=== PATIENT | male | born 1940 | race African-American/Black ===

== ENCOUNTER → 2020-01-10 10:10 | Outpatient (BNVA) | payer MEDICARE, SELFPAY | PROVIDERS: PCP Family Medicine; Visit Provider Physician Assistant | DX: M17.12 Unilateral primary osteoarthritis, left knee (principal) | CPT/HCPCS: 20610; 99213; J1040 ==

== ENCOUNTER 2020-03-13 12:49 | Outpatient (REF) | payer MEDICARE, SELFPAY ==
[2020-03-13 13:45] LABS: Alanine Aminotransferase 24 U/L (0-40); Anion Gap 12 (12-20); Aspartate Amino Transferase 32 U/L (5-37); Blood Urea Nitrogen 10 mg/dL (9-16); Carbon Dioxide 25 mmol/L (22-29); Chloride 107 mmol/L (96-108); Estimated Glomerular Filt Rate > 60; Potassium 4.4 mmol/l (3.3-5.1); Sodium 140 mmol/L (135-145)
== END 2020-03-13 12:50 | disposition home or self-care (01) ==
LOC: HO.LAB 12:49
PROVIDERS: PCP Family Medicine; Visit Provider Family Medicine
DX: E78.00 Pure hypercholesterolemia, unspecified (principal); I10 Essential (primary) hypertension
CPT/HCPCS: 80051; 82550; 82565; 84450; 84460; 84520

== ENCOUNTER → 2020-05-15 12:30 | Outpatient (BNVA) | payer MEDICARE, SELFPAY | PROVIDERS: PCP Family Medicine; Visit Provider Internal Medicine | DX: I25.10 Atherosclerotic heart disease of native coronary artery without angina pectoris (principal); I71.4 Abdominal aortic aneurysm, without rupture; I10 Essential (primary) hypertension; E78.5 Hyperlipidemia, unspecified | CPT/HCPCS: 93005; 99212 ==

== ENCOUNTER → 2020-05-29 12:41 | Outpatient (BNVA) | payer MEDICARE, SELFPAY | PROVIDERS: PCP Family Medicine; Visit Provider Physician Assistant | DX: M17.12 Unilateral primary osteoarthritis, left knee (principal); I71.4 Abdominal aortic aneurysm, without rupture | CPT/HCPCS: 20610; 99212; J1040 ==

== ENCOUNTER 2020-06-05 07:33 | Outpatient (REF) | payer MEDICARE, SELFPAY ==
--- NOTE | ~2020-06-05 | US_ITS ---
EXAMINATION: US RETROPERITONEAL LIMITED (AORTA) CLINICAL INFORMATION: Abdominal aortic aneurysm. COMPARISON: Aortic ultrasound on 08/25/2016 TECHNIQUE: Carreno-scale, color Doppler and spectral Doppler evaluation of the abdominal aorta. FINDINGS: There is an infrarenal aortic stent extending into the bilateral common iliac arteries. The measurements of the aorta in maximum AP and transverse dimensions respectively are as follows: Proximal: 2.9 x 2.9 cm. Mid: 2.9 x 2.9 cm. Distal: 2.6 cm. PSV: 65.3 cm/s. The measurements of the common iliac arteries in maximum AP and TRV dimensions are as follows: Right Common Iliac Artery: 2.1 cm. Left Common Iliac Artery: 2.3 cm. US/US abdominal aortic aneurysm IMPRESSION: Patent stent in the infrarenal abdominal aortic aneurysm. Aneurysm sac measures up to 2.9 cm..
== END 2020-06-05 07:34 | disposition home or self-care (01) ==
LOC: HO.US 07:33
PROVIDERS: Visit Provider Internal Medicine
DX: I71.4 Abdominal aortic aneurysm, without rupture (principal)
CPT/HCPCS: 76706

== ENCOUNTER → 2020-06-26 13:45 | Outpatient (BNVA) | payer MEDICARE, SELFPAY | PROVIDERS: PCP Family Medicine; Visit Provider Surgery Vascular Surgery | DX: I71.4 Abdominal aortic aneurysm, without rupture (principal) | CPT/HCPCS: 99212 ==

== ENCOUNTER 2020-09-16 09:38 | Outpatient (REF) | payer MEDICARE, SELFPAY ==
--- NOTE | ~2020-09-16 | CT_ITS ---
EXAMINATION: CT ANGIOGRAM ABDOMEN AND PELVIS CLINICAL INFORMATION: Abdominal aortic aneurysm COMPARISON: CTA abdomen and pelvis on 11/23/2016 TECHNIQUE: Multiple axial images were obtained through the abdomen and pelvis following the administration of 80 mL of Omnipaque 350 intravenous contrast. MIP reconstructed images were performed. This CT examination was performed using dose optimization techniques as appropriate, variously including the following: *Automated exposure control *Adjustment of mA and/or kV according to patient size (this includes techniques or standardized protocols for targeted exams where dose is matched to indication/reason for exam; i.e. extremities or head) *Use of iterative reconstruction technique DLP: 627 mGy-cm FINDINGS: Vasculature: There has been interval endovascular repair of an infrarenal abdominal aortic aneurysm with an aortobiiliac graft. The graft is patent. There is no evidence of endoleak. The manzanita aneurysm sac measures up to 4.1 cm where previously measured 4.6 cm. The origins of the celiac artery, SMA, and 2 left renal arteries are patent. The origin of the EDGAR is not well visualized. There is atherosclerotic calcification in the bilateral internal iliac arteries and common femoral arteries. Lower chest: Bilateral posterior dependent atelectasis, left greater than right. Large pleural plaque at the right lung base. Liver: Normal in size and attenuation. No focal lesions. Gallbladder and bile ducts: The gallbladder is normal. No intrahepatic or extrahepatic biliary ductal dilatation. Spleen: Normal in size and attenuation. Pancreas: Unremarkable. Adrenal glands: Unremarkable. Right kidney: There are multiple hypodensities which are too small to characterize. There is no hydronephrosis or hydroureter. Left kidney: There are multiple hypodensities which are too small to characterize. There is no hydronephrosis or hydroureter. Lymph nodes: There is no lymphadenopathy in the abdomen or pelvis. Gastrointestinal tract: The stomach, small, and large bowel are normal in course and caliber. The appendix is identified and is within normal limits. Colonic diverticulosis is noted. Urinary bladder: The bladder is normal. Pelvic organs: The prostate is unremarkable. Additional findings: There is no intraperitoneal free air or fluid. Soft tissues: Unremarkable. Osseous structures: No lytic or blastic lesions identified. CT/CT angio abdomen pelvis IMPRESSION: Interval endovascular repair of an infrarenal abdominal aortic aneurysm with an aortobiiliac graft. No evidence of endoleak. The manzanita aneurysm sac measures up to 4.1 cm where previously measured 4.6 cm.
[2020-09-16 11:29] LABS: Blood Urea Nitrogen 13 mg/dL (9-16); Estimated Glomerular Filt Rate > 60
[2020-09-16] MEDS: iohexoL 350 MG/ML 100 ML INFUS..BTL 80 ML IV (13:35)
== END 2020-09-16 09:39 | disposition home or self-care (01) ==
LOC: HO.CT 09:38
PROVIDERS: PCP Internal Medicine; Visit Provider Surgery Vascular Surgery
DX: I71.4 Abdominal aortic aneurysm, without rupture (principal)
CPT/HCPCS: 36415; 74174; 82565; 84520; Q9967

== ENCOUNTER → 2020-09-23 12:50 | Outpatient (BNVA) | payer MEDICARE, SELFPAY | PROVIDERS: PCP Internal Medicine; Visit Provider Surgery Vascular Surgery | DX: I71.4 Abdominal aortic aneurysm, without rupture (principal) | CPT/HCPCS: 99212 ==

== ENCOUNTER → 2020-09-24 12:31 | Outpatient (BNVA) | payer MEDICARE, SELFPAY | PROVIDERS: Visit Provider Physician Assistant | DX: M17.12 Unilateral primary osteoarthritis, left knee (principal); M25.562 Pain in left knee; I71.4 Abdominal aortic aneurysm, without rupture; I25.10 Atherosclerotic heart disease of native coronary artery without angina pectoris; I10 Essential (primary) hypertension; E78.49 Other hyperlipidemia; I73.9 Peripheral vascular disease, unspecified | CPT/HCPCS: 20610; 99212; J1040 ==

== ENCOUNTER 2020-11-14 10:37 | Outpatient (REF) | payer MEDICARE, SELFPAY ==
[2020-11-14 10:41] LABS: MANUAL DIFF FLAG NO
[2020-11-14 11:03] LABS: Basophils Absolute Auto 0.1 X10*3/uL (0.0-0.2); Basophils Percent Auto 0.6 % (0-2); Eosinophils Absolute Auto 0.2 X10*3/uL (0.0-0.4); Eosinophils Percent Auto 1.9 % (0-4); Hematocrit 43.4 % (42-52); Imm Gran Abs Auto 0.06 X10*3/uL (0.00-0.03); Imm Gran Pct Auto 0.8 % (0.0-0.4); Lymphocytes Absolute Auto 2.3 X10*3/uL (1.2-4.9); Lymphocytes Percent Auto 28.6 % (20-40); Mean Corpuscular HGB Conc 32.3 g/dl (31.0-36.0); Mean Corpuscular Hemoglobin 30.6 pg (27.0-33.0); Mean Platelet Volume 12.9 fL (9.4-12.4); Monocytes Absolute Auto 0.7 X10*3/uL (0.1-1.2); Neutrophils Absolute Auto 4.6 X10*3/uL (2.0-8.3); Neutrophils Percent Auto 59.1 % (45-73); Platelet Count 130 X10*3/uL (160-400); Red Blood Count 4.57 X10*6/uL (4.60-5.80); Red Cell Distribution Width 13.2 % (11.0-16.0); White Blood Count 7.9 X10*3/uL (4.8-10.8)
[2020-11-14 11:10] LABS: Alanine Aminotransferase 24 U/L (0-40); Alkaline Phosphatase 77 U/L (39-117); Anion Gap 11 (12-20); Aspartate Amino Transferase 28 U/L (5-37); Bilirubin Total 0.8 mg/dL (0.0-1.0); Blood Urea Nitrogen 14 mg/dL (9-16); Calcium 8.7 mg/dL (8.4-10.2); Carbon Dioxide 28 mmol/L (22-29); Chloride 106 mmol/L (96-108); Cholesterol 111 mg/dL; Estimated Glomerular Filt Rate > 60; Glucose Fasting 85 mg/dL (60-99); HDL Cholesterol 29 mg/dL; LDL Cholesterol Calculated 70 mg/dl; Potassium 4.1 mmol/L (3.3-5.1); Sodium 141 mmol/L (135-145); Total Protein 6.8 g/dL (6.5-8.0); Triglycerides 62 mg/dL
[2020-11-14 11:28] LABS: Reflex LDLD? No
[2020-11-14 11:32] LABS: Glucose Urine UA NEG (NEG); Leukocyte Esterase Urine NEG (NEG); Nitrite Urine NEG (NEG); Specific Gravity - Urine 1.015 (1.005-1.025); Urine Blood NEG (NEG); Urine Ketones NEG (NEG); Urine Protein NEG (NEG-TRACE)
[2020-11-14 11:41] LABS: PSA,Total (Free>4and<10) 1.08 ng/mL (0.00-4.00)
[2020-11-14 11:45] LABS: Appearance Urine CLEAR; Color Urine YELLOW
== END 2020-11-14 10:38 | disposition home or self-care (01) ==
LOC: HO.LNP 10:37
PROVIDERS: Visit Provider Internal Medicine
DX: Z00.00 Encounter for general adult medical examination without abnormal findings (principal); I10 Essential (primary) hypertension; I48.0 Paroxysmal atrial fibrillation; Z12.5 Encounter for screening for malignant neoplasm of prostate
CPT/HCPCS: 80053; 80061; 81003; 84153; 85025

== ENCOUNTER → 2021-01-09 09:35 | Outpatient (BNVA) | payer MEDICARE, SELFPAY | PROVIDERS: PCP Family Medicine; Visit Provider Physician Assistant | DX: M17.12 Unilateral primary osteoarthritis, left knee (principal) | CPT/HCPCS: 20610; 99212; J1040 ==

== ENCOUNTER → 2021-04-30 08:43 | Outpatient (BNVA) | payer MEDICARE, SELFPAY | PROVIDERS: PCP Family Medicine; Visit Provider Physician Assistant | DX: M17.12 Unilateral primary osteoarthritis, left knee (principal) | CPT/HCPCS: 20610; 99212; J1040 ==

== ENCOUNTER → 2021-05-18 12:26 | Outpatient (BNVA) | payer MEDICARE, SELFPAY | PROVIDERS: PCP Family Medicine; Visit Provider Internal Medicine | DX: I71.4 Abdominal aortic aneurysm, without rupture (principal); I25.10 Atherosclerotic heart disease of native coronary artery without angina pectoris; I10 Essential (primary) hypertension; E78.5 Hyperlipidemia, unspecified | CPT/HCPCS: 93005; 99212 ==

== ENCOUNTER 2021-08-10 10:44 | Outpatient (REF) | payer MEDICARE, SELFPAY ==
[2021-08-10 11:55] LABS: Alanine Aminotransferase 21 U/L (0-40); Anion Gap 12 (12-20); Aspartate Amino Transferase 28 U/L (5-37); Blood Urea Nitrogen 12 mg/dL (9-16); Carbon Dioxide 26 mmol/L (22-29); Chloride 107 mmol/L (96-108); Estimated Glomerular Filt Rate > 60; Potassium 4.5 mmol/L (3.3-5.1); Sodium 140 mmol/L (135-145)
== END 2021-08-10 10:45 | disposition home or self-care (01) ==
LOC: HO.LAB 10:44
PROVIDERS: Absent Provider Family Medicine; PCP Family Medicine; Visit Provider Surgery Vascular Surgery
DX: I10 Essential (primary) hypertension (principal); E78.00 Pure hypercholesterolemia, unspecified; K75.81 Nonalcoholic steatohepatitis (NASH); Z79.899 Other long term (current) drug therapy
CPT/HCPCS: 36415; 80051; 82550; 82565; 84450; 84460; 84520

== ENCOUNTER 2021-08-15 14:48 | Emergency (ER) | payer MEDICARE, SELFPAY ==
--- NOTE | ~2021-08-15 | XR_ITS ---
EXAMINATION: XR shoulder LT min 2V, XR foot LT min 3V CLINICAL INFORMATION: Reason for Exam fall/injury COMPARISON: None. TECHNIQUE: 3 views of left shoulder 3 views of left foot FINDINGS: Left shoulder: No acute fracture or dislocation. High riding humeral head. Moderate marginal osteophytes of the glenohumeral and a acromioclavicular joints. Prominent subacromial enthesophyte. Left foot: No acute fracture or dislocation. Small marginal osteophytes of the first metatarsophalangeal joint, and first tarsometatarsal joint. Diffuse soft tissue swelling about the foot. Vascular calcifications. XR/XR shoulder LT min 2V IMPRESSION: No acute fracture or dislocation.
--- NOTE | ~2021-08-15 | XR_ITS ---
EXAMINATION: XR shoulder LT min 2V, XR foot LT min 3V CLINICAL INFORMATION: Reason for Exam fall/injury COMPARISON: None. TECHNIQUE: 3 views of left shoulder 3 views of left foot FINDINGS: Left shoulder: No acute fracture or dislocation. High riding humeral head. Moderate marginal osteophytes of the glenohumeral and a acromioclavicular joints. Prominent subacromial enthesophyte. Left foot: No acute fracture or dislocation. Small marginal osteophytes of the first metatarsophalangeal joint, and first tarsometatarsal joint. Diffuse soft tissue swelling about the foot. Vascular calcifications. XR/XR foot LT min 3V IMPRESSION: No acute fracture or dislocation.
--- NOTE | ~2021-08-15 | CT_ITS ---
EXAMINATION: CT HEAD WITHOUT CONTRAST CT CERVICAL SPINE WITHOUT CONTRAST CLINICAL INFORMATION: Status post fall. Head injury. Patient is on blood thinners. COMPARISON: None TECHNIQUE: Multidetector volumetric CT imaging of the head and cervical spine is acquired without intravenous contrast administration. Postprocessing is performed at a dedicated workstation. Multiplanar reformatted images are submitted. This CT scan was performed using dose optimization techniques as appropriate to a performed exam including the following: *Automated exposure control. *Adjustment of mA and/or kV according to patient size (this includes techniques or standardized protocols for targeted exams were dose is matched to indication/reason for exam; i.e. extremities or head). *Use of iterative reconstruction technique. DLP: 1500 mGy-cm FINDINGS: CT HEAD: There is no evidence of acute intracranial hemorrhage, midline shift or mass effect. Eehp-iu-akqyi matter differentiation is well preserved. No evidence of acute territorial infarction. No abnormal extra-axial fluid collection. There is mild global volume loss with proportionate dilatation of the ventricles and cortical sulci. Mild bilateral periventricular patchy white matter low-attenuation changes are noted likely of chronic microangiopathy. Paranasal sinuses are well aerated. Osseous calvarium is intact. Mastoid air cells and middle ear cavities are well aerated. Cerumen is noted in the left external auditory canal. Osseous calvarium is intact. There is no evidence of significant calvarial soft tissue hematoma or swelling. CT CERVICAL SPINE: The vertebral body heights and alignment are maintained. Atlantoaxial and atlanto-occipital alignments are maintained. Posterior elements are intact and in normal alignment. Multilevel moderate disc space narrowing is noted from C2 to C7 with small marginal endplate osteophytes. Multilevel bilateral facet arthropathy is noted. The visualized lung apices are grossly unremarkable. No evidence of prevertebral soft tissue swelling. No significant thyroid nodule. Vascular calcifications are noted. No evidence of tight central canal stenosis. Moderate bilateral neural foraminal stenosis is noted from C3 to C7. CT/CT cervical spine wo con IMPRESSION: 1. No evidence of acute intracranial abnormality. Specifically, there is no evidence of acute intracranial hemorrhage or fracture of the osseous calvarium. 2. No evidence of acute fracture or traumatic subluxation in the cervical spine. Diffuse cervical spondylosis.
[2021-08-15 15:24] VITALS: BP 147/70; PULSE 63; RESP 17; TEMP 36.4; O2SAT 98; BMI 32.5
[2021-08-15 16:42] LABS: MANUAL DIFF FLAG NO
[2021-08-15 16:44] LABS: Basophils Absolute Auto 0.1 X10*3/uL (0.0-0.2); Basophils Percent Auto 0.5 % (0-2); Eosinophils Absolute Auto 0.2 X10*3/uL (0.0-0.4); Eosinophils Percent Auto 1.9 % (0-4); Hematocrit 40.1 % (42.0-52.0); Hemoglobin 13.3 g/dl (14.0-18.0); Imm Gran Abs Auto 0.05 X10*3/uL (0.00-0.03); Imm Gran Pct Auto 0.5 % (0.0-0.4); Lymphocytes Absolute Auto 2.3 X10*3/uL (1.2-4.9); Lymphocytes Percent Auto 24.9 % (20-40); Mean Corpuscular HGB Conc 33.2 g/dl (31.0-36.0); Mean Corpuscular Hemoglobin 31.6 pg (27.0-33.0); Mean Corpuscular Volume 95.2 fL (80.0-98.0); Mean Platelet Volume 12.4 fL (9.4-12.4); Monocytes Absolute Auto 0.9 X10*3/uL (0.1-1.2); Neutrophils Absolute Auto 5.7 x10*3/uL (2.0-8.3); Neutrophils Percent Auto 62.2 % (45-73); Platelet Count 142 X10*3/uL (160-400); Red Blood Count 4.21 X10*6/uL (4.60-5.80); Red Cell Distribution Width 13.2 % (11.0-16.0); White Blood Count 9.1 X10*3/uL (4.8-10.8)
[2021-08-15 17:12] LABS: Anion Gap 11 (12-20); Blood Urea Nitrogen 16 mg/dL (9-16); Calcium 9.3 mg/dL (8.4-10.2); Carbon Dioxide 27 mmol/L (22-29); Chloride 107 mmol/L (96-108); Creatinine Clr Calc Pharmacy 66.4; Estimated Glomerular Filt Rate > 60; Glucose Random 72 mg/dL (60-115); Potassium 4.8 mmol/L (3.3-5.1); Sodium 140 mmol/L (135-145)
--- NOTE | 2021-08-15 18:02 | ED.FALL ---
HPI - Fall General Chief Complaint: Fall Stated Complaint: FALL L FOOT INJ Time Seen by Provider: 08/15/21 17:42 Source: patient and family Mode of arrival: ambulatory Limitations: no limitations History of Present Illness HPI Narrative: 81-year-old male with a past medical history of right [id number] amputation, AAA, hypertension, PVD currently on Plavix presenting to the ED with complaints of a mechanical fall that occurred yesterday when he was at home. He reports that he walks with his crutches and he lost his balance with the crutch due to it got stuck on the neri of his home and he started to fall therefore he tried to slide down the wall that was next to him and he hit his head although did not lose consciousness and he was able to slide down the wall. He he reports that he does not recall injuring his left foot although he has noticed that it is now swollen and red and feels warm. any symptoms prior to the fall. He reports only pain/ swelling to the left lower foot after the fall no other symptoms. He denies any dizziness, headaches, neck pain / stiffness/ injury, changes in vision, jaw pain, paresthesias, nausea/ vomiting, chest pain or shortness of breath, dyspnea on exertion, orthopnea, palpitations, paresthesias, abdominal pain/ injury, back pain/injury, or any other symptoms complaints or concerns or injuries at this time. complaint: fall Onset (ago): day(s) ( Yesterday) Fall from: standing Fall witnessed: no Place fall occurred: home Loss of consciousness: none Prolonged down time: no Symptoms prior to fall: none Context: tripped/slipped Location of injury: head Location of injury - extremities: left: foot Severity: mild Quality: aching Associated symptoms (after fall): other ( pain to the left foot/ swelling otherwise no other symptoms) Related Data Home Medications Medication Instructions Recorded Confirmed losartan 50 mg tablet 50 mg PO DAILY 01/02/20 05/18/21 omeprazole 20 mg capsule,delayed 20 mg PO DAILY 01/02/20 05/18/21 release aspirin 81 mg tablet,delayed 81 mg PO DAILY 05/15/20 05/18/21 release isosorbide mononitrate 30 mg 30 mg PO DAILY 05/15/20 05/18/21 tablet,extended release 24 hr metoprolol tartrate 50 mg tablet 50 mg PO BID 05/15/20 05/18/21 multivitamin 1 tab PO DAILY 05/15/20 05/18/21 umeclidinium 62.5 mcg-vilanterol 1 inh INHALATION DAILY 05/15/20 05/18/21 25 mcg/actuation powdr for inhalation (Anoro Ellipta) Previous Rx's Medication Instructions Recorded atorvastatin 80 mg tablet 80 mg PO BEDTIME #30 tab 05/02/20 Wide Posthetic shoe #1 ea 07/06/21 walker #1 ea 08/05/21 cephalexin 500 mg capsule 500 mg PO Q6H 10 Days #40 cap 08/15/21 doxycycline hyclate 100 mg tablet 100 mg PO BID 10 Days #20 tab 08/15/21 Allergies Allergy/AdvReac Type Severity Reaction Status Date / Time No Known Allergies Allergy Mild NOT Verified 08/15/21 15:30 APPLICABLE Review of Systems Review of Systems: Constitutional : No Weight loss, No Fever, No Chills, No Night Sweats, No Fatigue, No Malaise ENT/Mouth : No Hearing loss, No Ear Pain, No Nasal Congestion, No Sinus Pain, No Hoarseness, No sore throat, No Rhinorrhea, No Swallowing Difficulty Eyes: No Eye Pain, No Swelling, No Redness, No Foreign Body, No Discharge, No Vision Changes Cardiovascular : No Chest Pain, No SOB, No Dyspnea on Exertion, No Orthopnea, No Edema, No Palpitations Respiratory : No Cough, No Sputum, No Wheezing, No Smoke Exposure, No Dyspnea Gastrointestinal : No Nausea, No Vomiting, No Diarrhea, No Constipation, No abdominal Pain, No Hematochezia, No Melena Genitourinary : no irregular bleeding, No Dysuria, No Urinary Frequency, No Hematuria, No Urinary Incontinence, No Urgency, No Flank Pain, No Urinary Flow Changes, No Hesitancy Musculoskeletal : + left foot joint pain/swelling, No Myalgias, No Joint Swelling Skin : No Skin Lesions, No rash Neuro : No Weakness, No Numbness, No Paresthesias, No Loss of Consciousness, No Dizziness, No Headache Psych : No Anxiety/Panic, No Depression, No SI/HI/AH/VH, No Social Issues, Heme/Lymph: No Bruising, No Bleeding,No Lymphadenopathy Endocrine : No Polyuria, No Polydipsia, No Temperature Intolerance Yes all other systems are reviewed and are negative [facility] Past Medical History Attestation statement: The following information was validated with the patient. Medical History AAA (abdominal aortic aneurysm) without rupture Atherosclerotic cardiovascular disease Essential hypertension Other and unspecified hyperlipidemia Peripheral vascular disease Surgical History History of amputation Family History Family History Father No problems noted. Mother No problems noted. Social History Social History Alcohol intake: current Alcohol intake frequency: holidays/special occasions only Patient Tobacco Use Status: Never used Tobacco Advance Directives: No Advance Directives Information Provided: Yes Gender identity: Male Physical Exam Vital Signs: Vital Signs: Last Vital Signs Temp 98.5 F 08/15/21 18:25 Pulse 53 08/15/21 18:25 Resp 16 08/15/21 18:25 BP 136/60 08/15/21 18:25 Pulse Ox 95 08/15/21 18:25 BMI result Body Mass Index 32.5 vital signs have been reviewed as normal and appeared to be correct. Blood pressure 147/70. Heart rate normal. Respiration rate normal. Temperature normal. Oxygen saturation normal. Appearance: Alert. Oriented X3. No acute distress. Head: Normal external exam. Normocephalic. Atraumatic. Eyes: PERRLA. EOMI. Conjunctiva and sclera normal. Eyelids normal. ENT: Pharynx normal. Uvula midline. Moist mucous membranes.Normal voice. No trismus noted. No drooling noted. No muffled voice noted. Neck: Normal inspection. Neck supple. FROM. No adenopathy. Thyroid Normal. No tracheal deviation noted. No crepitus is noted. No meningeal signs. No neck mass noted. No signs of trauma noted. CVS: Normal heart rate and rhythm. Heart sound normal. Pulses normal throughout. No murmurs/rales/gallops. Respiratory: No respiratory distress. Painless inspiration. Breath sounds normal. No wheezes/rales/rhonchi noted. Chest nontender. No crepitus is noted. No signs of trauma noted. No accessory muscle usage noted or decreased air movement noted. No signs of trauma. Abdomen: Soft and nontender. Bowel sounds normal in all 4 quadrants. No distention noted. No organomegaly noted. No visible injury noted. Back: Full range of motion noted. Nontender. No signs of trauma. Patient neuro intact bilaterally and distally on all 4 extremities. Patient's reflexes intact bilaterally and distally on all 4 extremities. No rashes/lesion/induration/fluctuance or signs of infection noted. Skin: Skin warm and dry. Normal skin color. Normal skin turgor. No rashes/lesions/lacerations noted. Extremities: to left foot patient has mild soft tissue swelling / tenderness palpation/ erythema and warm to touch consistent with cellulitis infection. No fluctuance/foreign body/streaking or abrasions noted. There is no lower extremity edema. No calf tenderness is noted. patient has right above the knee amputation otherwise all other Extremities exhibit normal range of motion and nontender. Neuro: Oriented X 3. No motor deficit. No sensory deficit. Reflexes normal. Normal steady gait with crutches which patient uses chronically. No focal neuro deficits noted. CN's II-XII intact bilaterally? Vascular: + radial pulses/+ 2 distal pedal pulses/+2 dorsalis pedis b/l. Normal cap refill. No cyanosis noted to upper extremity nails and lower extremity toes nails. Course Course Course Narrative: 18pm - 81-year-old male with a past medical history of right amezk-gpr-hlav amputation, AAA, hypertension, PVD currently on Plavix presenting to the ED with complaints of a mechanical fall that occurred yesterday when he was at home. He reports that he walks with his crutches and he lost his balance with the crutch due to it got stuck on the neri of his home and he started to fall therefore he tried to slide down the wall that was next to him and he hit his head although did not lose consciousness and he was able to slide down the wall. He he reports that he does not recall injuring his left foot although he has noticed that it is now swollen and red and feels warm. any symptoms prior to the fall. He reports only pain/ swelling to the left lower foot after the fall no other symptoms. labs were obtained while the patient was in the waiting room in patient with mild baseline anemia. Platelet count 142 which is improved when compared to prior. Anion gap 11. Otherwise all other labs are within normal limits. Left foot and left shoulder x-ray negative for any acute processes. Plan: Will obtain a CT scan of brain /cervical spine to evaluate for any acute processes. If negative patient will be discharged home with antibiotics for cellulitis infection /foot sprain instructions return if any new or worsening symptoms and to follow up with primary care provider. Patient and family at bedside understand and agree this plan. MDM - Fall Medical Records Attestation: I reviewed the patient's medical records. Lab Data Attestation: I reviewed the patient's lab results. Result diagrams: 08/15/21 16:31 08/15/21 16:31 Labs: Lab Results 08/15/21 08/15/21 Range/Units 16:31 16:31 WBC 9.1 (4.8-10.8) X10*3/uL RBC 4.21 L (4.60-5.80) X10*6/uL Hgb 13.3 L (14.0-18.0) g/dl Hct 40.1 L (42.0-52.0) % MCV 95.2 (80.0-98.0) fL MCH 31.6 (27.0-33.0) pg MCHC 33.2 (31.0-36.0) g/dl RDW 13.2 (11.0-16.0) % Plt Count 142 L (160-400) X10*3/uL MPV 12.4 (9.4-12.4) fL Immature Gran % (Auto) 0.5 H (0.0-0.4) % Neut % (Auto) 62.2 (45-73) % Lymph % (Auto) 24.9 (20-40) % Menard % (Auto) 10.0 (2-11) % Eos % (Auto) 1.9 (0-4) % Baso % (Auto) 0.5 (0-2) % Lymph # (Auto) 2.3 (1.2-4.9) X10*3/uL Menard # (Auto) 0.9 (0.1-1.2) X10*3/uL Eos # (Auto) 0.2 (0.0-0.4) X10*3/uL Baso # (Auto) 0.1 (0.0-0.2) X10*3/uL Abs Immat Gran (auto) 0.05 H (0.00-0.03) X10*3/uL Absolute Neuts (auto) 5.7 (2.0-8.3) x10*3/uL Absolute Nucleated RBC 0.000 (0.0-0.012) X10*3/uL Nucleated RBC % (auto) 0.0 (0.0-0.2) /100WBC Sodium 140 (135-145) mmol/L Potassium 4.8 (3.3-5.1) mmol/L Chloride 107 (96-108) mmol/L Carbon Dioxide 27 (22-29) mmol/L Anion Gap 11 L (12-20) BUN 16 (9-16) mg/dL Creatinine 1.05 (0.5-1.4) mg/dL Estim Creat Clear Calc 66.4 Estimated GFR > 60 Random Glucose 72 (60-115) mg/dL Calcium 9.3 D (8.4-10.2) mg/dL Imaging Data CT scan of brain /cervical spine without contrast: Attestation: I personally reviewed and interpreted this imaging study as follows: Radiologist's impression: FINDINGS: CT HEAD: There is no evidence of acute intracranial hemorrhage, midline shift or mass effect. Lgfk-nj-[id number] matter differentiation is well preserved. No evidence of acute territorial infarction. No abnormal extra-axial fluid collection. There is mild global volume loss with proportionate dilatation of the ventricles and cortical sulci. Mild bilateral periventricular patchy white matter low-attenuation changes are noted likely of chronic microangiopathy. Paranasal sinuses are well aerated. Osseous calvarium is intact. Mastoid air cells and middle ear cavities are well aerated. Cerumen is noted in the left external auditory canal. Osseous calvarium is intact. There is no evidence of significant calvarial soft tissue hematoma or swelling. CT CERVICAL SPINE: The vertebral body heights and alignment are maintained. Atlantoaxial and atlanto-occipital alignments are maintained. Posterior elements are intact and in normal alignment. Multilevel moderate disc space narrowing is noted from C2 to C7 with small marginal endplate osteophytes. Multilevel bilateral facet arthropathy is noted. The visualized lung apices are grossly unremarkable. No evidence of prevertebral soft tissue swelling. No significant thyroid nodule. Vascular calcifications are noted. No evidence of tight central canal stenosis. Moderate bilateral neural foraminal stenosis is noted from C3 to C7. CT/CT head/brain wo con IMPRESSION: 1. No evidence of acute intracranial abnormality. Specifically, there is no evidence of acute intracranial hemorrhage or fracture of the osseous calvarium. ? 2. No evidence of acute fracture or traumatic subluxation in the cervical spine. Diffuse cervical spondylosis.? Discharge Plan Discharge Clinical Impression: Fall, Cellulitis of left foot Patient Disposition: Home, Self-Care Instructions: Cellulitis (ED) Prescriptions: New doxycycline hyclate 100 mg tablet 100 mg PO BID 10 Days Qty: 20 0RF cephalexin 500 mg capsule 500 mg PO Q6H 10 Days Qty: 40 0RF No Action atorvastatin 80 mg tablet 80 mg PO BEDTIME Qty: 30 0RF Rx Instructions: needs cardiology follow up before more refills (DME) Wide Posthetic shoe See Rx Instructions .ROUTE .MEDSUPPLY Qty: 1 0RF Rx Instructions: As directed (DME) walker [facility] See Rx Instructions .MEDSUPPLY Qty: 1 0RF Rx Instructions: Wide walker with wheels and seat metoprolol tartrate 50 mg tablet 50 mg PO BID 0RF isosorbide mononitrate 30 mg tablet extended release 24 hr 30 mg PO DAILY 0RF aspirin 81 mg tablet,delayed release (DR/EC) 81 mg PO DAILY 0RF Anoro Ellipta 62.5-25 mcg/actuation blister with device 1 inh inhalation DAILY 0RF multivitamin Tablet 1 tab PO DAILY 0RF losartan 50 mg tablet 50 mg PO DAILY 0RF omeprazole 20 mg capsule,delayed release(DR/EC) 20 mg PO DAILY 0RF Referrals: Charles Oh MD [Primary Care Provider] - 2 days
--- NOTE | 2021-08-15 18:03 | PC.NURSE ---
Patient is alert and oriented x3, forgetful at times. patient reports a new pain in left neck/clavicle after fall yesterday. patient states pain is 4/10 at present-at tolerable level. Patient is able to make his needs known. There is erythema and warmth noted to left foot, patient denies tenderness.
[2021-08-15 18:25] VITALS: BP 136/60; PULSE 53; RESP 16; TEMP 36.9; O2SAT 95
[2021-08-15 20:19] VITALS: BP 154/78; PULSE 72; RESP 16; TEMP 36.6; O2SAT 98
[2021-08-15] MEDS: cephALEXin 500 MG CAPSULE PO (20:27)
== END 2021-08-15 20:30 | disposition home or self-care (01) ==
PROVIDERS: Emergency Provider Internal Medicine; PCP Family Medicine
DX: L03.116 Cellulitis of left lower limb (principal); I10 Essential (primary) hypertension; I73.9 Peripheral vascular disease, unspecified; Z79.02 Long term (current) use of antithrombotics/antiplatelets; Z91.81 History of falling; Z89.611 Acquired absence of right leg above knee
CPT/HCPCS: 36415; 70450; 72125; 73030; 73630; 80048; 85025; 99284

== ENCOUNTER → 2021-08-27 08:37 | Outpatient (BNVA) | payer MEDICARE, SELFPAY | PROVIDERS: PCP Family Medicine; Visit Provider Surgery Vascular Surgery | DX: I71.4 Abdominal aortic aneurysm, without rupture (principal) | CPT/HCPCS: 99212 ==

== ENCOUNTER → 2021-09-25 12:45 | Outpatient (BNVA) | payer MEDICARE, SELFPAY | PROVIDERS: Visit Provider Physician Assistant | DX: M17.12 Unilateral primary osteoarthritis, left knee (principal) | CPT/HCPCS: 20610; 99212; J1040 ==

== ENCOUNTER 2022-04-28 07:57 | Outpatient (REF) | payer MEDICARE, SELFPAY ==
[2022-04-28 08:22] LABS: MANUAL DIFF FLAG NO
[2022-04-28 08:32] LABS: Basophils Absolute Auto 0.1 X10*3/uL (0.0-0.2); Basophils Percent Auto 1.1 % (0-2); Eosinophils Absolute Auto 0.1 X10*3/uL (0.0-0.4); Eosinophils Percent Auto 1.5 % (0-4); Hematocrit 43.7 % (42.0-52.0); Hemoglobin 14.5 g/dl (14.0-18.0); Imm Gran Abs Auto 0.06 X10*3/uL (0.00-0.03); Imm Gran Pct Auto 0.7 % (0.0-0.4); Lymphocytes Absolute Auto 2.2 X10*3/uL (1.2-4.9); Lymphocytes Percent Auto 26.1 % (20-40); Mean Corpuscular HGB Conc 33.2 g/dl (31.0-36.0); Mean Corpuscular Hemoglobin 30.7 pg (27.0-33.0); Mean Corpuscular Volume 92.6 fL (80.0-98.0); Mean Platelet Volume 12.8 fL (9.4-12.4); Monocytes Absolute Auto 0.7 X10*3/uL (0.1-1.2); Monocytes Percent Auto 8.5 % (2-11); Neutrophils Absolute Auto 5.1 x10*3/uL (2.0-8.3); Neutrophils Percent Auto 62.1 % (45-73); Platelet Count 111 X10*3/uL (160-400); Red Blood Count 4.72 X10*6/uL (4.60-5.80); Red Cell Distribution Width 12.8 % (11.0-16.0); White Blood Count 8.3 X10*3/uL (4.8-10.8)
[2022-04-28 09:18] LABS: Alanine Aminotransferase 20 U/L (0-40); Albumin Level 3.9 g/dL (3.5-5.0); Alkaline Phosphatase 99 U/L (39-117); Anion Gap 14 (12-20); Aspartate Amino Transferase 30 U/L (5-37); Bilirubin Total 0.9 mg/dL (0.0-1.0); Blood Urea Nitrogen 12 mg/dL (9-16); Calcium 9.2 mg/dL (8.4-10.2); Carbon Dioxide 24 mmol/L (22-29); Chloride 109 mmol/L (96-108); Estimated Glomerular Filt Rate > 60; Glucose Random 84 mg/dL (60-115); Potassium 4.6 mmol/L (3.3-5.1); Sodium 142 mmol/L (135-145); Total Protein 6.8 g/dL (6.5-8.0)
== END 2022-04-28 07:58 | disposition home or self-care (01) ==
LOC: HO.LAB 07:57
PROVIDERS: PCP Family Medicine; Visit Provider Family Medicine
DX: I10 Essential (primary) hypertension (principal); E78.00 Pure hypercholesterolemia, unspecified; R53.1 Weakness; Z79.899 Other long term (current) drug therapy
CPT/HCPCS: 36415; 80053; 82550; 85025

== ENCOUNTER → 2022-05-26 13:06 | Outpatient (BNVA) | payer MEDICARE, SELFPAY | PROVIDERS: PCP Family Medicine; Referring Provider Family Medicine; Visit Provider Internal Medicine | DX: I44.0 Atrioventricular block, first degree (principal); I44.4 Left anterior fascicular block; I71.40 Abdominal aortic aneurysm, without rupture, unspecified; I25.10 Atherosclerotic heart disease of native coronary artery without angina pectoris; I10 Essential (primary) hypertension | CPT/HCPCS: 93005; 99212 ==

== ENCOUNTER → 2022-06-02 15:22 | Outpatient (BNVA) | payer MEDICARE, SELFPAY | PROVIDERS: PCP Family Medicine; Visit Provider Physician Assistant | DX: M17.12 Unilateral primary osteoarthritis, left knee (principal); I73.9 Peripheral vascular disease, unspecified; Z79.82 Long term (current) use of aspirin; Z79.899 Other long term (current) drug therapy | CPT/HCPCS: 20610; 99212; J1040 ==

== ENCOUNTER 2022-10-18 09:15 | Outpatient (REF) | payer MEDICARE, SELFPAY ==
--- NOTE | ~2022-10-18 | CT_ITS ---
EXAMINATION: CT ANGIOGRAM ABDOMEN AND PELVIS CLINICAL INFORMATION: Abdominal aortic aneurysm without rupture COMPARISON: CTA from 09/16/2020 DESCRIPTION: Routine abdomen and pelvis CTA protocol with contrast was performed. 80 mL of an opaque 350 was administered. 3D POSTPROCESSING: Multiple 3-D angiographic images were processed from the initial data set by the [facility] under concurrent physician supervision. DOSE LOWERING TECHNIQUES: This CT examination was performed using dose optimization techniques as appropriate, variously including the following: - Automated exposure control - Adjustment of mA and/or kV according to patient size (this includes techniques or standardized protocols for targeted exams where dose is matched to indication/reason for exam; i.e. extremities or head) - Use of iterative reconstruction technique DLP: 579 mGycm. COMPARISON: 09/16/2020 FINDINGS: VASCULAR: ABDOMINAL AORTA: There is a fusiform infrarenal abdominal aortic aneurysm. Abdominal aortic to bilateral common iliac artery bifurcated stent graft is present. Stent graft is in stable position and patent. There is mild to moderate mural thrombus is seen within the right iliac limb of the stent graft. Abdominal aortic aneurysm measures a maximum diameter 4.0 cm which is stable compared to the prior exam. No evidence of endoleak on arterial phase imaging.. RIGHT LOWER EXTREMITY: Right common iliac artery stent graft is patent with a mild to moderate mural thrombus is seen. The amount of mural thrombus is slightly increased compared to the prior exam. The right external iliac and internal iliac arteries are patent without aneurysm or stenosis. There is moderate calcified plaque seen in the distal common femoral artery with a moderate stenosis.. LEFT LOWER EXTREMITY: The left common iliac artery stent graft is widely patent without mural thrombus. The external iliac artery, internal iliac artery and visualized femoral arteries are patent. CELIOMESENTERIC ARTERIES: Patent. RENAL ARTERIES: Patent. NONVASCULAR: Lung Bases: Coarse calcification is seen along the right hemidiaphragm. Nodular density in the left lung base is stable. Liver, Gallbladder and Biliary Tree: The liver is normal in size, shape, and attenuation. No focal hepatic lesion or biliary ductal dilatation is present. The gallbladder is decompressed with no evidence of radiopaque gallstones, gallbladder wall thickening, or obvious pericholecystic inflammatory changes. Pancreas: Unremarkable. Spleen: Unremarkable. Adrenal Glands: There is a stable 1.8 x 1.3 cm nodule within the left adrenal gland. Right adrenal gland is normal. Kidneys and Ureters: The kidneys are normal in size, shape, and attenuation. No hydronephrosis, hydroureter, or calculi seen. No perinephric stranding. There is a stable 2 cm simple cyst in the right kidney. No follow-up indicated. Bladder: Unremarkable. Gastrointestinal Tract: The small and large bowel are unremarkable. The appendix is unremarkable. Abdominal Wall: No significant hernia is appreciated. Lymph Nodes: Normal. Pelvic Viscera: Unremarkable. Osseous Structures: Posterior facet joint arthropathy is seen in the lumbar spine. CT/CT angio abdomen pelvis IMPRESSION: 1. Abdominal aortic aneurysm, status post aortobiiliac stent graft. Aneurysm sac is stable in size measuring a maximum diameter 4.0 cm. No evidence of endoleak. 2. Mild to moderate mural thrombus is seen within the right common iliac artery stent graft which is slightly increased compared to the prior exam.
[2022-10-18 10:37] LABS: Alanine Aminotransferase 29 U/L (0-40); Anion Gap 12 (12-20); Aspartate Amino Transferase 27 U/L (5-37); Blood Urea Nitrogen 14 mg/dL (9-16); Carbon Dioxide 27 mmol/L (22-29); Chloride 108 mmol/L (96-108); Estimated Glomerular Filt Rate 57; Potassium 4.5 mmol/L (3.3-5.1); Sodium 142 mmol/L (135-145)
[2022-10-18] MEDS: iohexoL 350 MG/ML 100 ML INFUS..BTL 80 ML IV (12:05)
[2022-10-20 09:50] LABS: Creatinine POC 0.8 mg/dL (0.5-1.4); GFR POC > 60
== END 2022-10-18 09:16 | disposition home or self-care (01) ==
LOC: HO.CT 09:15
PROVIDERS: Absent Provider Family Medicine; PCP Family Medicine; Visit Provider Surgery Vascular Surgery
DX: I71.40 Abdominal aortic aneurysm, without rupture, unspecified (principal); I10 Essential (primary) hypertension; E78.00 Pure hypercholesterolemia, unspecified; Z79.899 Other long term (current) drug therapy
CPT/HCPCS: 36415; 74174; 80051; 82550; 82565; 84450; 84460; 84520; Q9967

== ENCOUNTER 2022-11-12 11:26 | Outpatient (AMB) | payer MEDICARE, SELFPAY ==
[2022-11-12 11:37] VITALS: BMI 35.6
--- NOTE | 2022-11-12 11:37 | MHC.OFFVIS ---
Intake Vital Signs 11/12/22 11:37 Height 5 ft 9 in Weight 241 lb BMI 35.6 Intake Visit Reasons: OV- Lt.knee inj. - last inj 06/02/22 Intake Note: Jonn an 82 year old male presents today for a follow up of left knee, last injection on 06/02/22. Patient reports he found relief with last injection, states pain returned about a week ago. He is requesting to repeat injection. Allergies No Known Allergies Allergy (Mild, Verified 11/12/22 11:40) NOT APPLICABLE HPI OV- Lt.knee inj. - last inj 06/02/22 HPI Details 82-year-old male who returns to the office today for a follow-up of left knee pain. He had his last injection on 06/02/22 which lasted until a week ago. He has not been active. He is interested in repeating the injection. [facility] Medical History AAA (abdominal aortic aneurysm) without rupture Atherosclerotic cardiovascular disease Essential hypertension Other and unspecified hyperlipidemia Peripheral vascular disease Surgical History History of amputation Family History Father No problems noted. Mother No problems noted. Social History Alcohol intake: current Alcohol intake frequency: holidays/special occasions only Patient Tobacco Use Status: Never used Tobacco Gender identity: Male Review of Systems Const All systems reviewed & are unremarkable except as noted in HPI and below Physical Exam Vital Signs: BMI result Body Mass Index 35.6 Extrem Other: Left knee skin intact. No erythema or joint effusion. Full ROM with crepitus. Calf supple non tender. Office Procedures Joint Injection/Drain Joint Injection/Drain Primary Site: left knee Prep: site was prepped using aseptic technique, ethochloride spray was applied and injection warnings given Injected: 80 mg of, DepoMedrol, with 8 mL of, 1% plain lidocaine and in the joint Approach Used: anterolateral Procedure: The patient tolerated the procedure well and there was some relief with the local anesthesia Coding 14239 - Glenohumeral/Tronchanteric Bursa/Intraarticular Procedure code (CPT) selection complete Results Reviewed Results Reviewed: 11/12/22 11:39 Lidocaine HCl 2 % MPF [Xylocaine 2 % MPF] 5 ml .ROUTE .STK-MED ONE methylPREDNISolone acetate [DEPO-MedroL] 80 mg .ROUTE .STK-MED ONE Assessment & Plan Assessment & Plan (1) Primary osteoarthritis of left knee: Code(s): M17.12 - Unilateral primary osteoarthritis, left knee Plan We discussed options today which include steroid injection. They did consent to move forward with the left knee injection, which was tolerated well. I recommended rest, ice and elevation and OTC anti-inflammatories PRN for discomfort. If symptoms persist or worsens over the next 6-8 weeks, patient will contact the office, otherwise follow-up as needed. Patient Instructions: Scribed for Alexei Barry PA-C, by Julito Velasquez medical coordinator pesticide use, on 11/12/2022 at 11:30 AM EST. IAlexei PA-C, have personally reviewed and agree with the information entered by the scribe. Coding Level of Care Code Est Pt Level 3 (03021) Diagnoses Primary osteoarthritis of left knee M17.12 CPT Codes Coding - Joint 7: 38217 - Glenohumeral/Tronchanteric Bursa/Intraarticular ([id number])
== END 2022-11-12 11:50 | disposition home or self-care (01) ==
PROVIDERS: PCP Family Medicine; Visit Provider Physician Assistant
DX: M17.12 Unilateral primary osteoarthritis, left knee (principal)
CPT/HCPCS: 20610; 99213

== ENCOUNTER → 2022-11-12 11:26 | Outpatient (BNVA) | payer MEDICARE, SELFPAY | PROVIDERS: PCP Family Medicine; Visit Provider Physician Assistant | DX: M17.12 Unilateral primary osteoarthritis, left knee (principal); I73.9 Peripheral vascular disease, unspecified | CPT/HCPCS: 20610; 99212; J1040 ==

== ENCOUNTER 2023-03-30 14:55 | Outpatient (AMB) | payer MEDICARE, SELFPAY ==
--- NOTE | 2023-03-30 15:32 | A.OFFVIS_ITS ---
Intake Intake Visit Reasons: OV-Left knee injection-last injection 11/12/22 Allergies No Known Allergies Allergy (Mild, Verified 11/12/22 11:40) NOT APPLICABLE HPI OV-Left knee injection-last injection 11/12/22 HPI Details 83-year-old male who returns to the [facility] today for a follow-up of left knee pain. He had his last injection on 11/12/22 which provided him good relief. He would like to repeat the injection. [facility] Medical History AAA (abdominal aortic aneurysm) without rupture Atherosclerotic cardiovascular disease Essential hypertension Other and unspecified hyperlipidemia Peripheral vascular disease Surgical History History of amputation Family History Father No problems noted. Mother No problems noted. Social History Alcohol intake: current Alcohol intake frequency: holidays/special occasions only Patient Tobacco Use Status: Never used Tobacco Gender identity: Male Review of Systems Const All systems reviewed & are unremarkable except as noted in HPI and below Physical Exam Extrem Other: Left knee skin intact. No erythema or joint effusion. Full ROM with crepitus. Calf supple non tender. Office Procedures Joint Injection/Drain Joint Injection/Drain Primary Site: left knee Prep: site was prepped using aseptic technique, ethochloride spray was applied and injection warnings given Injected: 80 mg of, DepoMedrol, with 8 mL of, 1% plain lidocaine and in the joint Approach Used: anterolateral Procedure: The patient tolerated the procedure well and there was some relief with the local anesthesia Coding 68237 - Glenohumeral/Tronchanteric Bursa/Intraarticular Procedure code (CPT) selection complete Assessment & Plan Assessment & Plan (1) Primary osteoarthritis of left knee: Code(s): M17.12 - Unilateral primary osteoarthritis, left knee Plan We discussed options today which include steroid injection. They did consent to move forward with the left knee injection, which was tolerated well. I recommended rest, ice and elevation and OTC anti-inflammatories PRN for discomfort. If symptoms persist or worsens over the next 6-8 weeks, patient will contact the office, otherwise follow-up as needed. Patient Instructions: Scribed for Alexei Barry PA-C, by Julito Velasquez director biomedical engineering, on 03/30/2023 at 3:15 PM FERNANDEZ. Alexei Vang PA-C, have personally reviewed and agree with the information entered by the scribe. Coding Level of Care Code Est Pt Level 3 (16296) Diagnoses Primary osteoarthritis of left knee M17.12 CPT Codes Coding - Joint 7: 04133 - Glenohumeral/Tronchanteric Bursa/Intraarticular ([id number])
== END 2023-03-30 15:36 | disposition home or self-care (01) ==
PROVIDERS: PCP Family Medicine; Visit Provider Physician Assistant
DX: M17.12 Unilateral primary osteoarthritis, left knee (principal)
CPT/HCPCS: 20610

== ENCOUNTER → 2023-03-30 14:55 | Outpatient (BNVA) | payer MEDICARE, SELFPAY | PROVIDERS: PCP Family Medicine; Visit Provider Physician Assistant | DX: M17.12 Unilateral primary osteoarthritis, left knee (principal) | CPT/HCPCS: 20610; J1040 ==

== ENCOUNTER 2023-04-13 14:28 | Outpatient (REF) | payer MEDICARE, SELFPAY ==
[2023-04-13 15:20] LABS: Alanine Aminotransferase 26 U/L (0-40); Anion Gap 15 (12-20); Aspartate Amino Transferase 28 U/L (5-37); Blood Urea Nitrogen 15 mg/dL (9-16); Carbon Dioxide 25 mmol/L (22-29); Chloride 101 mmol/L (96-108); Estimated Glomerular Filt Rate 50; Potassium 4.1 mmol/L (3.3-5.1); Sodium 137 mmol/L (135-145)
[2023-04-13 15:51] LABS: Influenza A PCR NEGATIVE (Negative); Influenza B PCR NEGATIVE (Negative); Resp Syncy Virus RNA Qual PCR NEGATIVE (Negative); SARS COV2 PCR INHOUSE POSITIVE (Negative)
== END 2023-04-13 14:29 | disposition home or self-care (01) ==
LOC: HO.LAB 14:28
PROVIDERS: PCP Family Medicine; Visit Provider Family Medicine
DX: I10 Essential (primary) hypertension (principal); E78.00 Pure hypercholesterolemia, unspecified; R05.9 Cough, unspecified; Z79.899 Other long term (current) drug therapy; Z11.52 Encounter for screening for COVID-19; Z20.828 Contact with and (suspected) exposure to other viral communicable diseases
CPT/HCPCS: 0241U; 80051; 82550; 82565; 84450; 84460; 84520

== ENCOUNTER 2023-05-12 12:31 | Emergency (ER) | payer MEDICARE, SELFPAY ==
--- NOTE | ~2023-05-12 | XR_ITS ---
EXAMINATION: XR CHEST CLINICAL INFORMATION: Cough, shortness of breath COMPARISON: Chest x-ray 04/20/2016 TECHNIQUE: 2 views of the chest were obtained. FINDINGS: No significant abnormality is noted involving the heart, lungs, mediastinum, bony thorax or soft tissues. XR/XR chest 2V IMPRESSION: Unremarkable chest examination. No change from 04/20/2016.
--- NOTE | 2023-05-12 12:53 | ED.URI ---
HPI - URI/Sore Throat General Chief Complaint: General Medical Stated Complaint: chest xray , sent from Dr. Oh Time Seen by Provider: 05/12/23 15:43 Source: patient Mode of arrival: ambulatory Limitations: no limitations History of Present Illness HPI Narrative: Patient comes to the emergency room complaining of 1 month of shortness of breath. Patient states that by the month ago he was diagnosed with COVID, took the antiviral. Initially he started feeling well but shortly after he started having some shortness of breath and cough, worse at night. Patient states that he does not know if he has history of asthma or COPD. However, patient has been prescribed inhalers for the last month. Patient states that he was taking an inhaled steroid twice a day which was helping me him. Patient states that he was using samples because he can not afford the actually inhalers. Patient denies any chest pain. Patient states he has been having some heartburn for couple of days. Related Data Home Medications Medication Instructions Recorded Confirmed losartan 50 mg tablet 50 mg PO DAILY 01/02/20 06/05/22 omeprazole 20 mg capsule,delayed 20 mg PO DAILY 01/02/20 06/05/22 release aspirin 81 mg tablet,delayed 81 mg PO DAILY 05/15/20 06/05/22 release isosorbide mononitrate 30 mg 30 mg PO DAILY 05/15/20 06/05/22 tablet,extended release 24 hr metoprolol tartrate 50 mg tablet 50 mg PO BID 05/15/20 06/05/22 multivitamin 1 tab PO DAILY 05/15/20 06/05/22 umeclidinium 62.5 mcg-vilanterol 1 inh inhalation DAILY 05/15/20 06/05/22 25 mcg/actuation powdr for inhalation (Anoro Ellipta) cyclobenzaprine 5 mg tablet 5 mg PO BEDTIME PRN 08/27/21 06/05/22 Previous Rx's Medication Instructions Recorded atorvastatin 80 mg tablet 80 mg PO BEDTIME #30 tabs 05/02/20 Wide Posthetic shoe #1 ea 07/06/21 walker #1 ea 08/05/21 doxycycline hyclate 100 mg tablet 100 mg PO BID 10 days #20 tabs 08/15/21 albuterol sulfate 2.5 mg/3 mL 2.5 mg (3 mL) inhalation Q4H #90 mL 05/12/23 (0.083 %) solution for nebulization albuterol sulfate 90 mcg/actuation 2 puff inhalation Q4-6H PRN 05/12/23 aerosol inhaler shortness of breath or wheezing #8.5 grams prednisone 50 mg tablet 50 mg PO DAILY #4 tabs 05/12/23 umeclidinium 62.5 mcg-vilanterol 1 inh inhalation Q24H #14 ea 05/12/23 25 mcg/actuation powdr for inhalation (Anoro Ellipta) Allergies Allergy/AdvReac Type Severity Reaction Status Date / Time No Known Allergies Allergy Mild NOT Verified 11/12/22 11:40 APPLICABLE Review of Systems Review of Systems: Constitutional : No Weight loss, No Fever, No Chills, No Night Sweats, No Fatigue, No Malaise ENT/Mouth : No Hearing loss, No Ear Pain, complaining of Nasal Congestion, No Sinus Pain, No Hoarseness, No sore throat, No Rhinorrhea, No Swallowing Difficulty Eyes: No Eye Pain, No Swelling, No Redness, No Foreign Body, No Discharge, No Vision Changes Cardiovascular : Complaining of chest pressure at night with nasal congestion No Chest Pain, No SOB, No Dyspnea on Exertion, No Orthopnea, No Edema, No Palpitations Respiratory : complaining of cough for about a month, wheezing, shortness of breath, postnasal drip at night Gastrointestinal : No Nausea, No Vomiting, No Diarrhea, No Constipation, No abdominal Pain, No Hematochezia, No Melena Genitourinary : no irregular bleeding, No Dysuria, No Urinary Frequency, No Hematuria, No Urinary Incontinence, No Urgency, No Flank Pain, No Urinary Flow Changes, No Hesitancy Musculoskeletal : No joint pain, No Myalgias, No Joint Swelling Skin : No Skin Lesions, No rash Neuro : No Weakness, No Numbness, No Paresthesias, No Loss of Consciousness, No Dizziness, No Headache Psych : No Anxiety/Panic, No Depression, No SI/HI/AH/VH, No Social Issues, Heme/Lymph: No Bruising, No Bleeding,No Lymphadenopathy Endocrine : No Polyuria, No Polydipsia, No Temperature Intolerance PMFSH Past Medical History Medical History AAA (abdominal aortic aneurysm) without rupture Other and unspecified hyperlipidemia Essential hypertension Peripheral vascular disease Atherosclerotic cardiovascular disease Surgical History History of amputation Family History Family History Father No problems noted. Mother No problems noted. Social History Social History Alcohol intake: current Alcohol intake frequency: holidays/special occasions only Patient Tobacco Use Status: Never used Tobacco Smoked in Last 30 Days: No Use of substances other than those prescribed or required for medical reasons: Yes Substance Use Type: Marijuana Advance Directives: Yes Advance Directives Information Provided: No Advance Directives on File: No Gender identity: Male Physical Exam Vital Signs: Vital Signs: Last Vital Signs Temp 97.4 F 05/12/23 17:22 Pulse 95 05/12/23 17:22 Resp 16 05/12/23 17:22 BP 130/66 05/12/23 17:22 Pulse Ox 94 05/12/23 17:22 O2 Del Method Room Air 05/12/23 17:22 BMI result Body Mass Index 32.3 Const: Other: Appearance: Alert. Oriented X3. No acute distress. Eyes: Pupils equal, round and reactive to light. ENT: Pharynx normal. Neck: Normal inspection. Neck supple. No lymph nodes noted. No crepitus CVS: Normal heart rate and rhythm. Pulses normal. Normal S1 and S2 Respiratory: No respiratory distress. Patient has coarse bilateral wheezing, no crackles, oxygen saturation 96% on room air Abdomen: Soft and nontender. No rigidity. No distention. Skin: Skin warm and dry. Normal skin color. Normal skin turgor. Extremities: No lower extremity edema. No Lacerations. No Rash Neuro: Oriented X 3. No motor deficit. No sensory deficit. Moving all extremities. No slurred speech. CN 2 through 12 grossly intact Psych: calm, cooperative, normal affect Course Course Course Narrative: NORMAN: Covid at the beginning of April. Treated with Paxlovid. Was prescribed an albuterol inhaler which has not helped his symptoms. Was previously prescribed Anoro inhaler which 'worked good'. Coughing and increased shortness of breath with exertion. Sneezing and coughing up white phlegm. Denies any chest pain, headache, vision changes, abdominal pain, dependent edema. Sent in to ED by his PCP. Medications Administered Discontinued Medications Generic Name Dose Route Start Last Admin Trade Name Dane PRN Reason Stop Dose Admin Albuterol Sulfate 2.5 mg/ 0 mg 05/12/23 15:55 05/12/23 16:02 Albuterol/Ipratropium 3 ml INHALE 05/12/23 15:56 5 dose ONCE ONE Administration Omeprazole 20 mg 05/12/23 12:55 05/12/23 15:30 Omeprazole 20 Mg Capsule.Dr PO 05/12/23 12:56 20 mg ONCE ONE Administration Prednisone 60 mg 05/12/23 15:55 05/12/23 16:30 Prednisone 20 Mg Tablet PO 05/12/23 15:56 60 mg ONCE ONE Administration Medical Decision Making Medical Decision Making [facility] Narrative: -patient was given a DuoNeb, prednisone. -it is likely that patient has undiagnosed asthma/COPD, or may be it has been diagnosed with patient is unaware. My interpretation of chest x-ray: No infiltrates -my interpretation of labs, normal hematology, normal chemistry, normal troponin and BNP -my interpretation of EKG: Normal sinus rhythm, heart rate 62, no ST segment depression or elevation, right bundle-branch block, QTC 422 -after the nebulization treatments, patient feeling much better, wheezing bilaterally but very minimal, patient states that he feels completely back to normal. Oxygen saturation walking around the emergency room remained at 94%. Differential Diagnosis Differential Diagnoses: The differential diagnosis associated with the presentation includes (Asthma, chronic lung disease, bronchitis, pneumonia) Admission/Observation Consideration of admission/observation: Escalation of care including admission/observation considered (Given patient's history and symptoms, admission was considered) Lab Data [facility] Lab Attestation statement: I reviewed the patient's lab results. 05/12/23 13:21 05/12/23 13:21 Labs: Lab Results 05/12/23 Range/Units 13:21 WBC 8.8 (4.8-10.8) X10*3/uL RBC 4.79 (4.60-5.80) X10*6/uL Hgb 14.8 (14.0-18.0) g/dl Hct 44.6 (42.0-52.0) % MCV 93.1 (80.0-98.0) fL MCH 30.9 (27.0-33.0) pg MCHC 33.2 (31.0-36.0) g/dl RDW 12.9 (11.0-16.0) % Plt Count 125 L (160-400) X10*3/uL MPV 12.7 H (9.4-12.4) fL Immature Gran % (Auto) 0.9 H (0.0-0.4) % Neut % (Auto) 54.8 (45-73) % Lymph % (Auto) 26.8 (20-40) % Wilbarger % (Auto) 8.9 (2-11) % Eos % (Auto) 7.2 H (0-4) % Baso % (Auto) 1.4 (0-2) % Lymph # (Auto) 2.4 (1.2-4.9) X10*3/uL Wilbarger # (Auto) 0.8 (0.1-1.2) X10*3/uL Eos # (Auto) 0.6 H (0.0-0.4) X10*3/uL Baso # (Auto) 0.1 (0.0-0.2) X10*3/uL Abs Immat Gran (auto) 0.08 H (0.00-0.03) X10*3/uL Absolute Neuts (auto) 4.8 (2.0-8.3) x10*3/uL Absolute Nucleated RBC 0.000 (0.0-0.012) X10*3/uL Nucleated RBC % (auto) 0.0 (0.0-0.2) /100WBC Sodium 139 (135-145) mmol/L Potassium 4.3 (3.3-5.1) mmol/L Chloride 102 (96-108) mmol/L Carbon Dioxide 30 H (22-29) mmol/L Anion Gap 11 L (12-20) BUN 14 (9-16) mg/dL Creatinine 1.12 (0.5-1.4) mg/dL Estim Creat Clear Calc 61.9 Estimated GFR > 60 Random Glucose 80 (60-115) mg/dL Calcium 10.5 H D (8.4-10.2) mg/dL Total Bilirubin 0.5 (0.0-1.0) mg/dL AST 26 (5-37) U/L ALT 21 (0-40) U/L Alkaline Phosphatase 82 (39-117) U/L Troponin I High Sens < 2.7 (<3.5-35.0) ng/L B-Natriuretic Peptide 15 (<100) pg/mL Total Protein 7.3 (6.5-8.0) g/dL Albumin 3.9 (3.5-5.0) g/dL Independent Interpretation I performed an independent interpretation of an: EKG and Plain X-Ray Radiology Impression Discussion of test interpretation with radiology: I have reviewed the radiologist's reading. Radiologist Impression: FINDINGS: No significant abnormality is noted involving the heart, lungs, mediastinum, bony thorax or soft tissues. XR/XR chest 2V IMPRESSION: Unremarkable chest examination. No change from 04/20/2016 Critical Care Time Critical Care Time Critical Care Time: Yes Total Critical Care Time: 45 Attestation: I have personally provided critical care time. Time includes review of lab data, radiology results, discussion with consultants, and monitoring for potential decompensation. Intervention performed as documented. Discharge Plan Discharge Clinical Impression: Bronchitis, Asthma Patient Disposition: Home, Self-Care Instructions: Asthma (ED), Acute Bronchitis (ED) Additional Instructions: Please follow-up with your primary care physician tomorrow. If you have any worsening or new symptoms, please return to the emergency room or call 911 Prescriptions: New albuterol sulfate 90 mcg/actuation HFA aerosol inhaler 2 puff inhalation Q4-6H PRN (Reason: shortness of breath or wheezing) Qty: 8.5 1RF albuterol sulfate 2.5 mg /3 mL (0.083 %) solution for nebulization 2.5 mg inhalation Q4H Qty: 90 0RF prednisone 50 mg tablet 50 mg PO DAILY Qty: 4 0RF Anoro Ellipta 62.5-25 mcg/actuation blister with device 1 inh inhalation Q24H Qty: 14 0RF No Action atorvastatin 80 mg tablet 80 mg PO BEDTIME Qty: 30 0RF Rx Instructions: needs cardiology follow up before more refills (DME) Wide Posthetic shoe See Rx Instructions .ROUTE .MEDSUPPLY Qty: 1 0RF Rx Instructions: As directed (DME) merlene Rojas See Rx Instructions .MEDSUPPLY Qty: 1 0RF Rx Instructions: Wide walker with wheels and seat doxycycline hyclate 100 mg tablet 100 mg PO BID 10 Days Qty: 20 0RF metoprolol tartrate 50 mg tablet 50 mg PO BID isosorbide mononitrate 30 mg tablet extended release 24 hr 30 mg PO DAILY aspirin 81 mg tablet,delayed release (DR/EC) 81 mg PO DAILY Anoro Ellipta 62.5-25 mcg/actuation blister with device 1 inh inhalation DAILY multivitamin Tablet 1 tab PO DAILY losartan 50 mg tablet 50 mg PO DAILY omeprazole 20 mg capsule,delayed release(DR/EC) 20 mg PO DAILY cyclobenzaprine 5 mg tablet 5 mg PO BEDTIME PRN
[2023-05-12 12:54] VITALS: BP 151/72; PULSE 64; RESP 18; TEMP 36.2; O2SAT 96; BMI 32.3
--- NOTE | 2023-05-12 12:55 | ECG_ITS ---
Test Reason : CHEST PAIN Blood Pressure : / mmHG Vent. Rate : 062 BPM Atrial Rate : 062 BPM P-R Int : 234 ms QRS Dur : 130 ms QT Int : 416 ms P-R-T Axes : 061 -38 014 degrees QTc Int : 422 ms Sinus rhythm with 1st degree A-V block Left axis deviation Right bundle branch block Minimal voltage criteria for LVH, may be normal variant ( R in aVL ) Abnormal ECG When compared with ECG of 27-DEC-2011 11:34, VA interval has increased Right bundle branch block is now Present Referred By: Manuela Duncan Electronically Signed By:MANUEL ROCK
[2023-05-12 13:31] LABS: MANUAL DIFF FLAG NO
[2023-05-12 13:37] LABS: Basophils Absolute Auto 0.1 X10*3/uL (0.0-0.2); Basophils Percent Auto 1.4 % (0-2); Eosinophils Absolute Auto 0.6 X10*3/uL (0.0-0.4); Eosinophils Percent Auto 7.2 % (0-4); Hematocrit 44.6 % (42.0-52.0); Hemoglobin 14.8 g/dl (14.0-18.0); Imm Gran Abs Auto 0.08 X10*3/uL (0.00-0.03); Imm Gran Pct Auto 0.9 % (0.0-0.4); Lymphocytes Absolute Auto 2.4 X10*3/uL (1.2-4.9); Lymphocytes Percent Auto 26.8 % (20-40); Mean Corpuscular HGB Conc 33.2 g/dl (31.0-36.0); Mean Corpuscular Hemoglobin 30.9 pg (27.0-33.0); Mean Corpuscular Volume 93.1 fL (80.0-98.0); Mean Platelet Volume 12.7 fL (9.4-12.4); Monocytes Absolute Auto 0.8 X10*3/uL (0.1-1.2); Monocytes Percent Auto 8.9 % (2-11); Neutrophils Absolute Auto 4.8 x10*3/uL (2.0-8.3); Neutrophils Percent Auto 54.8 % (45-73); Platelet Count 125 X10*3/uL (160-400); Red Blood Count 4.79 X10*6/uL (4.60-5.80); Red Cell Distribution Width 12.9 % (11.0-16.0); White Blood Count 8.8 X10*3/uL (4.8-10.8)
[2023-05-12 13:48] LABS: Alanine Aminotransferase 21 U/L (0-40); Albumin Level 3.9 g/dL (3.5-5.0); Alkaline Phosphatase 82 U/L (39-117); Anion Gap 11 (12-20); Aspartate Amino Transferase 26 U/L (5-37); Bilirubin Total 0.5 mg/dL (0.0-1.0); Blood Urea Nitrogen 14 mg/dL (9-16); Calcium 10.5 mg/dL (8.4-10.2); Carbon Dioxide 30 mmol/L (22-29); Chloride 102 mmol/L (96-108); Creatinine Clr Calc Pharmacy 61.9; Estimated Glomerular Filt Rate > 60; Glucose Random 80 mg/dL (60-115); Potassium 4.3 mmol/L (3.3-5.1); Sodium 139 mmol/L (135-145); Total Protein 7.3 g/dL (6.5-8.0)
[2023-05-12 13:53] LABS: B Type Natriuretic Peptide 15 pg/mL (<100)
[2023-05-12 14:01] LABS: Troponin-I High Sensitivity < 2.7 ng/L (<3.5-35.0)
[2023-05-12] MEDS: Omeprazole 20 MG CAPSULE.DR PO (15:30)
[2023-05-12 15:36] VITALS: BP 157/84; PULSE 66; RESP 16; TEMP 36.9; O2SAT 96
--- NOTE | 2023-05-12 15:38 | MHC.EDTECH ---
This pct just assumed care of pt ,vitals taken ,Pt waiting to see Provider .
[2023-05-12] MEDS: Albuterol Sulfate 2.5 MG, Albuterol/Iprat 2.5/0.5MG 3 ML 3 ML INHALE (16:02)
[2023-05-12 16:05] VITALS: PULSE 66; RESP 22; O2SAT 95
[2023-05-12] MEDS: predniSONE 20 MG TABLET 60 MG PO (16:30)
[2023-05-12 17:22] VITALS: BP 130/66; PULSE 95; RESP 16; TEMP 36.3; O2SAT 94
--- NOTE | 2023-05-12 17:26 | MHC.EDTECH ---
Per Provider order Pt went for a walk while checking Pt o2 sat ,pt 2osat started at 94 % and remain at 94 % ,Provider aware .
== END 2023-05-12 17:54 | disposition home or self-care (01) ==
PROVIDERS: Nurse Practitioner Family; Emergency Provider Emergency Medicine
DX: J45.909 Unspecified asthma, uncomplicated (principal); J02.9 Acute pharyngitis, unspecified; R05.9 Cough, unspecified; R06.02 Shortness of breath; Z79.899 Other long term (current) drug therapy
CPT/HCPCS: 36415; 71046; 80053; 83880; 84484; 85025; 93005; 94640; 99284; 99285

== ENCOUNTER → 2023-05-12 12:55 | Outpatient (BNV) | payer MEDICARE, SELFPAY | PROVIDERS: Emergency Provider Emergency Medicine; Visit Provider Internal Medicine | DX: R94.31 Abnormal electrocardiogram [ECG] [EKG] (principal) | CPT/HCPCS: 93010 ==

== ENCOUNTER 2023-07-13 13:23 | Outpatient (AMB) | payer MEDICARE, SELFPAY ==
--- NOTE | 2023-07-13 13:28 | A.OFFVIS_ITS ---
Intake Intake Visit Reasons: OV-Left knee injection-last injection 03/30/23 Intake Note: Jonn an 83 year old male presents today for a follow up of left knee OA, last injeciton on 03/30/23. Patient reports last injection provided him with relief and is requesting to repeat injection. Allergies No Known Allergies Allergy (Mild, Verified 07/13/23 13:38) NOT APPLICABLE HPI OV-Left knee injection-last injection 03/30/23 HPI Details 83-year-old male who returns to the [facility] today for a follow-up of left knee pain. He had his last injection on 03/30/23 which provided him relief. He would like to repeat the injection today. [facility] Medical History AAA (abdominal aortic aneurysm) without rupture Other and unspecified hyperlipidemia Essential hypertension Peripheral vascular disease Atherosclerotic cardiovascular disease Surgical History History of amputation Family History Father No problems noted. Mother No problems noted. Social History Alcohol intake: current Alcohol intake frequency: holidays/special occasions only Patient Tobacco Use Status: Never used Tobacco Substance Use Type: Marijuana Gender identity: Male Review of Systems Const All systems reviewed & are unremarkable except as noted in HPI and below Physical Exam Extrem Other: Left knee skin intact. No erythema or joint effusion. Full ROM with crepitus. Calf supple non tender. Office Procedures Joint Injection/Drain Joint Injection/Drain Primary Site: left knee Prep: site was prepped using aseptic technique, ethochloride spray was applied and injection warnings given Injected: 80 mg of, DepoMedrol, with 8 mL of, 1% plain lidocaine and in the joint Approach Used: anterolateral Procedure: The patient tolerated the procedure well and there was some relief with the local anesthesia Coding 95540 - Glenohumeral/Tronchanteric Bursa/Intraarticular Procedure code (CPT) selection complete Assessment & Plan Assessment & Plan (1) Primary osteoarthritis of left knee: Code(s): M17.12 - Unilateral primary osteoarthritis, left knee Plan We discussed options today which include steroid injection. They did consent to move forward with the left knee injection, which was tolerated well. I recommended rest, ice and elevation and OTC anti-inflammatories PRN for discomfort. If symptoms persist or worsens over the next 6-8 weeks, patient will contact the office, otherwise follow-up as needed. Patient Instructions: Scribed for Alexei Barry PA-C, by Julito Velasquez certified medical records coder, on 07/13/2023 at 1:30 PM EST. Alexei Vang PA-C, have personally reviewed and agree with the information entered by the scribe. Coding Level of Care Code Est Pt Level 3 (31933) Diagnoses Primary osteoarthritis of left knee M17.12 CPT Codes Coding - Joint 7: 24809 - Glenohumeral/Tronchanteric Bursa/Intraarticular ([id number])
== END 2023-07-13 13:58 | disposition home or self-care (01) ==
PROVIDERS: Visit Provider Physician Assistant
DX: M17.12 Unilateral primary osteoarthritis, left knee (principal)
CPT/HCPCS: 20610

== ENCOUNTER → 2023-07-13 13:23 | Outpatient (BNVA) | payer MEDICARE, SELFPAY | PROVIDERS: Visit Provider Physician Assistant | DX: M17.12 Unilateral primary osteoarthritis, left knee (principal); I73.9 Peripheral vascular disease, unspecified | CPT/HCPCS: 20610; J1010; J1040 ==

== ENCOUNTER 2023-08-03 12:51 | Outpatient (AMB) | payer MEDICARE, SELFPAY ==
[2023-08-03 12:56] VITALS: BP 138/68; PULSE 72; O2SAT 96; BMI 32.3
--- NOTE | 2023-08-03 12:56 | MHC.OFFVIS ---
Vital Signs 08/03/23 12:56 08/03/23 13:31 Height 5 ft 10 in Weight 225 lb BMI 32.3 BP 138/68 120/62 Blood Pressure Location Lt brachial Lt brachial Position Sitting Sitting Pulse 72 Pulse Source Monitor Pulse Oximetry (%) 96 Oxygen Delivery Method Room Air Intake Visit Reasons: f/up needs more meds Intake Note: follow up for meds pt feels good no symptoms Allergies No Known Allergies Allergy (Mild, Verified 08/03/23 13:13) NOT APPLICABLE Medication List - Last Reconciled 08/03/23 by Caron Son NP albuterol sulfate 2.5 mg (3 mL) inhalation Q4H albuterol sulfate 90 mcg/actuation 2 puffs inhalation Q4-6H PRN aspirin 81 mg PO DAILY atorvastatin 80 mg PO BEDTIME cyclobenzaprine 5 mg PO BEDTIME PRN isosorbide mononitrate ER 30 mg PO DAILY losartan 50 mg PO DAILY metoprolol tartrate 50 mg PO BID multivitamin 1 tab PO DAILY omeprazole 20 mg PO DAILY prednisone 50 mg PO DAILY umeclidinium-vilanterol 62.5-25 mcg/actuation (Anoro Ellipta) 1 inh inhalation Q24H umeclidinium-vilanterol 62.5-25 mcg/actuation (Anoro Ellipta) 1 inh inhalation DAILY walker Wide walker with wheels and seat [Wide Posthetic shoe As directed] HPI Comments Details: 83-year-old male presents today for a follow-up. He reports he has been doing well. He denies any shortness of breath, chest pains, palpitations, or syncope. He is pretty sedentary due to not having a vehicle anymore. He had recently quit smoking marijuana. He is overdue for seeing Dr. Finnegan. [facility] Medical History AAA (abdominal aortic aneurysm) without rupture Other and unspecified hyperlipidemia Essential hypertension Peripheral vascular disease Atherosclerotic cardiovascular disease Surgical History History of amputation Family History Father No problems noted. Mother No problems noted. Social History Alcohol intake: current Alcohol intake frequency: holidays/special occasions only Patient Tobacco Use Status: Never used Tobacco Substance Use Type: Marijuana Gender identity: Male Review of Systems Const Denies weakness ENT Denies dizziness Card Denies chest pain, Denies chest pain with activity, Denies syncope, Denies rapid heart rate, Denies pedal edema, Denies edema, Denies leg edema, Denies lightheadedness, Denies palpitations, Denies dyspnea, Denies dyspnea on exertion and Denies orthopnea Resp Denies cough, Denies dyspnea and Denies dyspnea on exertion GI Denies hematochezia and Denies change in stool character Musc Denies abnormal gait, Denies muscle cramps, Denies muscle weakness, Denies numbness, Denies radiating pain into limb and Denies tingling Neuro Denies abnormal gait, Denies dizziness, Denies syncope, Denies numbness, Denies tingling and Denies weakness Endo Denies palpitations Physical Exam Vital Signs: Last Vital Signs Pulse 72 08/03/23 12:56 BP 120/62 08/03/23 13:31 Pulse Ox 96 08/03/23 12:56 Oxygen Delivery Method Room Air 08/03/23 12:56 BMI result Body Mass Index 32.3 Const General: healthy appearing and no acute distress Orientation/consciousness: patient oriented x3 HEENT Head: Yes normal to inspection Eyes General: appearance normal, both eyes and all related structures Neck Neck: Yes normal visual inspection Chest Chest palpation & inspection: normal inspection of the chest Resp Effort & Inspection: normal respiratory effort Auscultation: clear to auscultation bilaterally Cardio Jugular venous distension: no JVD Palpation: normal PMI Rate: regular rate Rhythm: regular rhythm Heart sounds: S1 normal heart sound present, S2 normal heart sound present, no click, no gallops, no murmurs and no rubs GI Inspection: Yes normal to inspection Palpation (GI): Soft to palpation Skin General skin exam: no rashes or lesions noted Neuro General: patient oriented x3 Extrem General: Yes normal to inspection Psych Appearance: grossly normal Assessment & Plan Assessment & Plan (1) Atherosclerotic cardiovascular disease: Code(s): I25.10 - Atherosclerotic heart disease of [place] coronary artery without angina pectoris Category: Medical Plan: Cardiac Cathetierization in 2017 for chronic total occusion. On asa 81mg indefinetly. Also on statins. Will repeat lipids, bmp. (2) Essential hypertension: Code(s): I10 - Essential (primary) hypertension Category: Medical Plan: On metoprolol and lsoartan. Blood pressure within goal toady. (3) AAA (abdominal aortic aneurysm) without rupture: Comment: 06/02/2017 - endovascular repair with Medtronic endurant 2 S graft Code(s): I71.4 - Abdominal aortic aneurysm, without rupture Category: Medical Plan: He follows with Dr. Finnegan for this. He is due for an appointment. Plan PT is unsure of medications. Will verify with pharmacy. Orders: Orders Lipid Panel 08/03/23 I25.10 - Atherosclerotic heart disease of [place] coronary artery without angina pectoris Basic Metabolic Panel 08/03/23 I25.10 - Atherosclerotic heart disease of [place] coronary artery without angina pectoris CA echo transthoracic complete 08/03/23 I10 - Essential (primary) hypertension Coding Level of Care Code Est Pt Level 3 (42682) Diagnoses Atherosclerotic cardiovascular disease I25.10 Essential hypertension I10 AAA (abdominal aortic aneurysm) without rupture I71.4
[2023-08-03 13:31] VITALS: BP 120/62
== END 2023-08-03 13:37 | disposition home or self-care (01) ==
PROVIDERS: Visit Provider Nurse Practitioner
DX: I25.10 Atherosclerotic heart disease of native coronary artery without angina pectoris (principal); I10 Essential (primary) hypertension; I71.40 Abdominal aortic aneurysm, without rupture, unspecified
CPT/HCPCS: 99213

== ENCOUNTER → 2023-08-03 12:51 | Outpatient (BNVA) | payer MEDICARE, SELFPAY | PROVIDERS: Visit Provider Nurse Practitioner | DX: I10 Essential (primary) hypertension (principal); I25.10 Atherosclerotic heart disease of native coronary artery without angina pectoris; I71.40 Abdominal aortic aneurysm, without rupture, unspecified; Z79.52 Long term (current) use of systemic steroids | CPT/HCPCS: 99212 ==

== ENCOUNTER → 2023-09-13 10:43 | Outpatient (REF) | payer MEDICARE, SELFPAY ==
--- NOTE | 2023-09-13 10:45 | CA_ITS ---
Transthoracic Echocardiogram Patient (Last, First, Middle): Jonn Valencia D Gender: Male Date of : 1940 Age: 83 Procedure Date: 09/13/2023 Procedure Type: Transthoracic Echocardiogram Location: OP Height: 177.8 cm Weight: 102.06 kg BSA: 2.19 m2 Heart Rate: bpm BP: 134 / 80 mmHg Check Services Clerk: Referring MD: Caron Son [employer]SEM[employer] SUPERVISOR Symptoms: I10 - Essential (primary) hypertension Study Quality: Technically Difficult ECG Rhythm: Sinus Conclusions: - The left ventricular systolic function is normal. The calculated ejection fraction is 61% by biplane method. - There is moderately increased left ventricular wall thickness. - No obvious valvular pathology seen on this study. - There is mild dilatation of the sinuses of Valsalva and mild dilatation of the ascending aorta. Ascending aortic size not very clear; possibly inaccurate measurement. - Consider CT chest for further assessment. Findings Procedure Information Contrast agent, definity, is being given per protocol without apparent complications. Left Ventricle Normal left ventricular cavity size. There is moderately increased left ventricular wall thickness. The left ventricular systolic function is normal. The calculated ejection fraction is 61% by biplane method. There is no evidence of regional wall motion abnormalities. Diastolic function is normal for age. Right Ventricle Normal right ventricular cavity size. There is low normal right ventricular systolic function. Atria Both atria are normal in size. Aortic Valve There is a normal trileaflet aortic valve. There is no aortic valve stenosis. There is no aortic valve regurgitation. Mitral Valve The mitral valve appears normal. There is no mitral valve regurgitation. There is no mitral valve stenosis. Pulmonic Valve The pulmonic valve is likely normal. Tricuspid Valve There is trace tricuspid valve regurgitation. Tricuspid regurgitation envelope is inadequate for calculation of right ventricular systolic pressure. Great Vessels There is mild dilatation of the sinuses of Valsalva and mild dilatation of the ascending aorta. Ascending aortic size not very clear; possibly inaccurate measurement. Venous The inferior vena cava was not well visualized. The inferior vena cava is normal in size and collapses greater than 50% with inspiration. Pericardium/Pleural There is no evidence of pericardial effusion. Prior Study Comparison No significant change compared to prior study dated: 12/16/2016. Recommendations, Care & Conclusions No obvious valvular pathology seen on this study. Measurements 2D Linear Measurements IVSd: 1.50 0.6-0.9/0.6-1.0 cm LVIDd: 4.79 3.9-5.3/4.2-5.9 cm LVIDd Index: 2.19 2.4-3.2/2.2-3.1 cm/m2 LVIDs: 3.22 2.0-3.6 cm LVPWd: 1.49 0.7-1.1 cm Ao Root: 4.20 2.1-3.5 cm LA Diam: 3.90 2.7-3.8/3.0-4.0 cm LAIDs Index: 1.78 1.5-2.3 cm/m2 LV Mass: 375.45 67-162/88-224 g LV Mass Index: 171.44 43-95/49-115 g/m2 LVOT Diam: 2.50 3.0+(-)1.3 cm 2D Systolic Function EF 4C: 68.20 >55% EF 2C: 55.20 >55% EF BiP: 61.20 >55% Mitral Valve MV Pk E: 0.39 MV PK A: 0.61 MV Decel Time: 281.00 E/A: 0.60 E'Lateral: 6.31 E'Medial: 4.68 E/E' Med: 8.30 E/E' Lat: 6.20 PHT: 82.00 MVA PHT: 2.68 Decel [place]: 1.39 Aortic Valve AoV Pk Jered: 1.05 AoV Mn Jered: 0.67 AoV VTI: 0.23 AoV Pk Grad: 4.00 Aov Mn Grad: 3.00 MARYSOL Cont.VTI: 3.47 LVOT LVOT Pk Jered: 0.86 LVOT Mn Jered: 0.56 LVOT VTI: 0.16 LVOT Pk Grad: 3.00 LVOT Mn Grad: 2.00 LVOT Diam: 2.50 LVOT Area: 4.91 Diastolic Function MV Pk E: 0.39 MV Pk A: 0.61 E/A: 0.60 E'Medial: 4.68 E/E' Med: 8.30 E' Laterial: 6.31 E/E' Lat: 6.20 Right Ventricle TAPSE (mm): 21.00 TVS' Jered: 10.00 Tricuspid Valve TR Pk Jered: 1.64 TR Pk Grad: 11.00 RA Press: 3.00 RVSP: 14.00 Great Vessels Aorta Ao Root-2D: 4.20 2.0-3.7 cm Sinus of Valsalva: 4.20 2.0-3.5 cm Ao Asc: 4.50 2.1-3.4 cm Pulmonary Valve PV Pk Jered: 0.79 Peak PV Grad: 3.00 Updated in Other Vendor System with Status of Final Varun Hurtado MD electronically signed on 09/14/2023 10:31:33 AM with status of Final
== END ==
LOC: HO.CARD 10:43
PROVIDERS: PCP Family Medicine; Visit Provider Nurse Practitioner
DX: I10 Essential (primary) hypertension (principal)
CPT/HCPCS: 93306; Q9957

== ENCOUNTER → 2023-09-13 10:45 | Outpatient (BNV) | payer MEDICARE, SELFPAY | PROVIDERS: PCP Family Medicine; Visit Provider Internal Medicine | DX: I10 Essential (primary) hypertension (principal); R93.1 Abnormal findings on diagnostic imaging of heart and coronary circulation | CPT/HCPCS: 93306 ==

== ENCOUNTER 2023-09-29 13:03 | Outpatient (AMB) | payer MEDICARE, SELFPAY ==
--- NOTE | 2023-09-29 13:12 | A.OFFVIS_ITS ---
Vital Signs 09/29/23 13:13 Height 5 ft 10 in Weight 238 lb 1.588 oz BMI 34.2 BP 132/68 Blood Pressure Location Lt brachial Position Sitting Pulse 58 Pulse Source Pulse Oximeter Intake Visit Reasons: f/up echo Allergies No Known Allergies Allergy (Mild, Verified 08/03/23 13:13) NOT APPLICABLE HPI Comments Details: 83-year-old male presents today for a follow-up. He reports he has been doing well. He denies any shortness of breath, chest pains, palpitations, or syncope. He is pretty sedentary due to not having a vehicle anymore. He had recently quit smoking marijuana. He is overdue for seeing Dr. Finnegan. [facility] Medical History AAA (abdominal aortic aneurysm) without rupture Other and unspecified hyperlipidemia Essential hypertension Peripheral vascular disease Atherosclerotic cardiovascular disease Surgical History History of amputation Family History Father No problems noted. Mother No problems noted. Social History Alcohol intake: current Alcohol intake frequency: holidays/special occasions only Patient Tobacco Use Status: Never used Tobacco Substance Use Type: Marijuana Gender identity: Male Review of Systems Const Denies weakness ENT Denies dizziness Card Denies chest pain, Denies chest pain with activity, Denies syncope, Denies rapid heart rate, Denies pedal edema, Denies edema, Denies leg edema, Denies lightheadedness, Denies palpitations, Denies dyspnea, Denies dyspnea on exertion and Denies orthopnea Resp Denies cough, Denies dyspnea and Denies dyspnea on exertion GI Denies hematochezia and Denies change in stool character Musc Denies abnormal gait, Denies muscle cramps, Denies muscle weakness, Denies numbness, Denies radiating pain into limb and Denies tingling Neuro Denies abnormal gait, Denies dizziness, Denies syncope, Denies numbness, Denies tingling and Denies weakness Endo Denies palpitations Physical Exam Vital Signs: Last Vital Signs Pulse 58 09/29/23 13:13 BP 132/68 09/29/23 13:13 BMI result Body Mass Index 34.2 Results Reviewed Results Reviewed: Conclusions: - The left ventricular systolic function is normal. The calculated ejection fraction is 61% by biplane method. - There is moderately increased left ventricular wall thickness. - No obvious valvular pathology seen on this study. - There is mild dilatation of the sinuses of Valsalva and mild dilatation of the ascending aorta. Ascending aortic size not very clear; possibly inaccurate measurement. - Consider CT chest for further assessment. Assessment & Plan Assessment & Plan (1) Atherosclerotic cardiovascular disease: Code(s): I25.10 - Atherosclerotic heart disease of [place] coronary artery without angina pectoris Category: Medical Plan: On aspirin 81mg, atorvastatin 80mg, isosorbide 30mg, losartan 50mg, metoprolol tartrate 50mg. Blood pressure borderline today. Low salt diet reviewed. Exercise as tolerated. (2) AAA (abdominal aortic aneurysm) without rupture: Comment: 06/02/2017 - endovascular repair with Medtronic endurant 2 S graft Code(s): I71.4 - Abdominal aortic aneurysm, without rupture Category: Medical Plan: Is calling Dr. Quinn office for an appointment. (3) Essential hypertension: Code(s): I10 - Essential (primary) hypertension Category: Medical Plan: as above Orders: Orders Lipid Panel 09/29/23 I25.10 - Atherosclerotic heart disease of [place] coronary artery without angina pectoris Basic Metabolic Panel 09/29/23 I25.10 - Atherosclerotic heart disease of [place] coronary artery without angina pectoris Coding Level of Care Code Est Pt Level 3 (49289) Diagnoses Atherosclerotic cardiovascular disease I25.10 AAA (abdominal aortic aneurysm) without rupture I71.4 Essential hypertension I10
[2023-09-29 13:13] VITALS: BP 132/68; PULSE 58; BMI 34.2
== END 2023-09-29 13:45 | disposition home or self-care (01) ==
PROVIDERS: Visit Provider Nurse Practitioner
DX: I25.10 Atherosclerotic heart disease of native coronary artery without angina pectoris (principal); I71.40 Abdominal aortic aneurysm, without rupture, unspecified; I10 Essential (primary) hypertension
CPT/HCPCS: 99213

== ENCOUNTER → 2023-09-29 13:03 | Outpatient (BNVA) | payer MEDICARE, SELFPAY | PROVIDERS: Visit Provider Nurse Practitioner | DX: I25.10 Atherosclerotic heart disease of native coronary artery without angina pectoris (principal); I71.40 Abdominal aortic aneurysm, without rupture, unspecified; I10 Essential (primary) hypertension | CPT/HCPCS: 99212 ==

== ENCOUNTER 2023-10-04 13:41 | Outpatient (REF) | payer MEDICARE, SELFPAY ==
--- NOTE | ~2023-10-04 | US_ITS ---
EXAMINATION: US SCROTUM CLINICAL INFORMATION: Left scrotal swelling. COMPARISON: None available. TECHNIQUE: A sonogram of the scrotum was performed assessing brewer-scale appearance and color Doppler flow. Spectral Doppler analysis of the arterial and venous flow were performed in the testes bilaterally. FINDINGS: RIGHT: Right testicle measures 4.4 x 3.2 x 2.9 cm, volume 21.4 mL. No focal testicular parenchymal lesions are visualized. Parenchymal echotexture is heterogeneous Spectral Doppler analysis of the arterial and venous flow is decreased in the right testis. Right epididymal head is normal in size. No right varicocele is seen. Large right simple hydrocele. Right epididymal Doppler flow is normal. LEFT: Left testicle measures 4.9 x 3.8 x 3.0 cm, volume 29.0 mL. No focal testicular parenchymal lesions are visualized. Spectral Doppler analysis of the arterial and venous flow is decreased in the left testis. Left epididymal head is normal in size. No left varicocele is seen. Large simple appearing hydrocele Left epididymal Doppler flow is normal. US/US scrotum IMPRESSION: Large bilateral hydroceles. Decreased flow within the bilateral testicles which could be due to underlying hydroceles. No evidence of torsion.
--- NOTE | ~2023-10-04 | US_ITS ---
EXAMINATION: US SCROTUM CLINICAL INFORMATION: Left scrotal swelling. COMPARISON: None available. TECHNIQUE: A sonogram of the scrotum was performed assessing brewer-scale appearance and color Doppler flow. Spectral Doppler analysis of the arterial and venous flow were performed in the testes bilaterally. FINDINGS: RIGHT: Right testicle measures 4.4 x 3.2 x 2.9 cm, volume 21.4 mL. No focal testicular parenchymal lesions are visualized. Parenchymal echotexture is heterogeneous Spectral Doppler analysis of the arterial and venous flow is decreased in the right testis. Right epididymal head is normal in size. No right varicocele is seen. Large right simple hydrocele. Right epididymal Doppler flow is normal. LEFT: Left testicle measures 4.9 x 3.8 x 3.0 cm, volume 29.0 mL. No focal testicular parenchymal lesions are visualized. Spectral Doppler analysis of the arterial and venous flow is decreased in the left testis. Left epididymal head is normal in size. No left varicocele is seen. Large simple appearing hydrocele Left epididymal Doppler flow is normal. US/US scrotum doppler IMPRESSION: Large bilateral hydroceles. Decreased flow within the bilateral testicles which could be due to underlying hydroceles. No evidence of torsion.
== END 2023-10-04 13:42 | disposition home or self-care (01) ==
LOC: HO.US 13:41
PROVIDERS: Visit Provider Family Medicine
DX: N50.9 Disorder of male genital organs, unspecified (principal)
CPT/HCPCS: 76870; 93975

== ENCOUNTER 2023-10-19 09:18 | Outpatient (REF) | payer MEDICARE, SELFPAY ==
[2023-10-19 11:41] LABS: Alanine Aminotransferase 34 U/L (0-40); Anion Gap 12 (12-20); Aspartate Amino Transferase 39 U/L (5-37); Blood Urea Nitrogen 15 mg/dL (9-16); Carbon Dioxide 26 mmol/L (22-29); Chloride 108 mmol/L (96-108); Estimated Glomerular Filt Rate 58; Potassium 4.3 mmol/L (3.3-5.1); Sodium 142 mmol/L (135-145)
== END 2023-10-19 09:19 | disposition home or self-care (01) ==
LOC: HO.LAB 09:18
PROVIDERS: Absent Provider Family Medicine; PCP Family Medicine; Visit Provider Physician Assistant
DX: M17.12 Unilateral primary osteoarthritis, left knee (principal); I10 Essential (primary) hypertension; E78.00 Pure hypercholesterolemia, unspecified; Z79.899 Other long term (current) drug therapy
CPT/HCPCS: 20610; 36415; 80051; 82550; 82565; 84450; 84460; 84520; 99212; J1010

== ENCOUNTER 2023-10-19 09:18 | Outpatient (AMB) | payer MEDICARE, SELFPAY ==
--- NOTE | 2023-10-19 09:39 | MHC.OFFVIS ---
Vital Signs 10/19/23 09:41 Height 5 ft 10 in Weight 238 lb BMI 34.1 Intake Visit Reasons: OV-Left knee injection-last injection 07/13/23 Intake Note: Jonn an 83 year old male who presents today for a follow up of left knee, last injection on 07/13/23. Patient reports injection provided him with relief and is requesting to repeat injection. Allergies No Known Allergies Allergy (Mild, Verified 10/19/23 09:48) NOT APPLICABLE HPI HPI OV-Left knee injection-last injection 07/13/23: Details: 83-year-old female who returns to the office today for a follow-up of left knee pain. He had his last injection on 07/13/23 that provided him relief. He would like to repeat the injection. [facility] Medical History AAA (abdominal aortic aneurysm) without rupture Other and unspecified hyperlipidemia Essential hypertension Peripheral vascular disease Atherosclerotic cardiovascular disease Surgical History History of amputation Family History Father No problems noted. Mother No problems noted. Social History Alcohol intake: current Alcohol intake frequency: holidays/special occasions only Patient Tobacco Use Status: Never used Tobacco Substance Use Type: Marijuana Gender identity: Male Review of Systems Const All systems reviewed & are unremarkable except as noted in HPI and below Physical Exam Vital Signs: BMI result Body Mass Index 34.1 Extrem Other: Left knee skin intact. No erythema or joint effusion. Full ROM with crepitus. Calf supple non tender. Office Procedures Joint Injection/Drain Joint Injection/Drain Primary Site: left knee Prep: site was prepped using aseptic technique, ethochloride spray was applied and injection warnings given Injected: 80 mg of, DepoMedrol, with 8 mL of, 1% plain lidocaine and in the joint Approach Used: anterolateral Procedure: The patient tolerated the procedure well and there was some relief with the local anesthesia Coding 80014 - Glenohumeral/Tronchanteric Bursa/Intraarticular Procedure code (CPT) selection complete Assessment & Plan Assessment & Plan (1) Primary osteoarthritis of left knee: Code(s): M17.12 - Unilateral primary osteoarthritis, left knee Category: Medical Plan We discussed options today, which include steroid injection. The patient did consent to move forward with the left knee injection, which was tolerated well. I recommended rest, ice, and elevation and OTC anti-inflammatories as needed for discomfort. If symptoms persist or worsen over the next 6-8 weeks, patient will contact the office, otherwise follow-up as needed. ? Patient Instructions: Scribed for Alexei Barry PA-C, by Julito Velasquez medical biller/coder, on 10/19/2023 at 9:45 AM EST.? I, Alexei Barry PA-C, have personally reviewed and agree with the information entered by the scribe. Coding Level of Care Code Est Pt Level 3 (27231) Diagnoses Primary osteoarthritis of left knee M17.12 CPT Codes Coding - Joint 7: 04186 - Glenohumeral/Tronchanteric Bursa/Intraarticular ([id number])
[2023-10-19 09:41] VITALS: BMI 34.1
== END 2023-10-19 10:12 | disposition home or self-care (01) ==
PROVIDERS: Visit Provider Physician Assistant
DX: M17.12 Unilateral primary osteoarthritis, left knee (principal)
CPT/HCPCS: 20610; 99213

== ENCOUNTER 2023-11-16 07:51 | Outpatient (REF) | payer MEDICARE, SELFPAY ==
--- NOTE | ~2023-11-16 | CT_ITS ---
EXAMINATION: CTA ABDOMEN AND PELVIS CLINICAL INFORMATION: Abdominal aortic aneurysm after endovascular repair TECHNIQUE: Multiple axial images were obtained through the abdomen and pelvis before and after administration of 70 mL of Omnipaque intravenously. Images were evaluated on independent dedicated 3-D workstation and 3-D images were reconstructed with concurrent radiologist supervision and subsequently interpreted. Specific vascular measurements are placed directly on the 3-D rendered images and are documented and stored in PACS. This CT examination was performed using dose optimization techniques as appropriate, variously including the following: *Automated exposure control. *Adjustment of mA and/or kV according to patient size (this includes techniques or standardized protocols for targeted exams where dose is matched to indication/reason for exam, i.e., extremities or head). *Use of iterative reconstruction technique. COMPARISON: CTA abdomen and pelvis 10/18/2022 DLP: 560 mGy-cm. FINDINGS: VASCULAR: Abdominal aorta: Atherosclerotic plaque in the distal descending thoracic aorta and proximal abdominal aorta. Abdominal aortic endograft in place. No change in the size of the aneurysm sac. No evidence of endoleak. 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 Coarse atherosclerotic plaque in the right external iliac artery causing mild stenosis. Mesenteric arteries: The celiac artery and SMA are patent. The EDGAR is occluded at its origin but reconstitutes distally. Renal arteries: Patent bilateral renal arteries NONVASCULAR: Lung Bases: Calcified pleural plaques in the lung bases. Liver, Gallbladder, Biliary Tree: The liver is normal in size, shape, and attenuation. No focal hepatic lesion or biliary ductal dilatation is present. The gallbladder is unremarkable with no evidence of radiopaque gallstones, gallbladder wall thickening, or pericholecystic inflammatory changes. Pancreas: Unremarkable. Spleen: Unremarkable. Adrenal Glands: Stable left-sided adrenal nodule measuring 1.3 cm. Kidneys and Ureters: The kidneys are normal in size, shape, and attenuation. No hydronephrosis or hydroureter or calculi seen. No perinephric stranding. Bladder: Unremarkable. Gastrointestinal Tract: The small and large bowel are unremarkable. The appendix is unremarkable. Abdominal Wall: No hernia is demonstrated. Lymph Nodes: Normal. Pelvic Viscera: Unremarkable. Osseous Structures: Degenerative changes of the lumbar spine. CT/CT angio abdomen pelvis IMPRESSION: 1. Status post abdominal aortic endograft placement. Aneurysm sac is stable in size. No endoleak. 2. 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
[2023-11-16] MEDS: iohexoL 350 MG/ML 100 ML INFUS..BTL 80 ML IV (08:29)
== END 2023-11-16 07:52 | disposition home or self-care (01) ==
LOC: HO.CT 07:51
PROVIDERS: Visit Provider Surgery Vascular Surgery
DX: I71.40 Abdominal aortic aneurysm, without rupture, unspecified (principal)
CPT/HCPCS: 74174; Q9967

== ENCOUNTER 2024-01-19 11:41 | Outpatient (AMB) | payer MEDICARE, SELFPAY ==
--- NOTE | 2024-01-19 11:44 | A.OFFVIS_ITS ---
Intake Visit Reasons: Follow Up 11/15 CTA AAA Intake Note: Patient presents for follow up 11/15 CTA AAA. Patient has no complaints regarding AAA. States he does have leg pain. Allergies No Known Allergies Allergy (Mild, Verified 01/19/24 11:46) NOT APPLICABLE HPI HPI Follow Up 11/15 CTA AAA: Details: Very pleasant 83-year-old gentleman presents for follow-up regarding endovascular aortic aneurysm repair this was done back in June of [address] Butts. He reports no interval issues he remains fairly active. Of note he does have a right lower extremity traumatic AKA amputation. He is doing extremely well with that. He continues to do things around the house. 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 He now presents for follow-up with CT angiogram. [facility] Medical History AAA (abdominal aortic aneurysm) without rupture Other and unspecified hyperlipidemia Essential hypertension Peripheral vascular disease Atherosclerotic cardiovascular disease Surgical History History of amputation Family History Father No problems noted. Mother No problems noted. Social History Alcohol intake: current Alcohol intake frequency: holidays/special occasions only Patient Tobacco Use Status: Never used Tobacco Substance Use Type: Marijuana Gender identity: Male Review of Systems Const All systems reviewed & are unremarkable except as noted in HPI and below Reports no additional complaints ENT Reports Normal hearing present Card Denies chest pain, Denies chest pain at rest, Denies chest pain with activity and Denies pedal edema Resp Denies cough GI Denies abdominal pain Musc Denies abnormal gait, Denies muscle cramps and Denies radiating pain into limb Skin/Breast Denies skin ulcer and Denies wounds Neuro Reports Normal hearing present and Denies abnormal gait Psych Reports no additional complaints Physical Exam Const General: cooperative, healthy appearing and comfortable Orientation/consciousness: oriented to person, oriented to place and oriented to time HEENT Head: Yes normal to inspection Neck Neck: Yes normal visual inspection Carotids: no bruits Chest Chest palpation & inspection: normal inspection of the chest Resp Effort & Inspection: normal respiratory effort and able to speak in complete sentences Auscultation: clear to auscultation bilaterally, no crackles, no rales, no rhonchi and no wheezes Cardio Rate: regular rate Rhythm: regular rhythm Heart sounds: S1 normal heart sound present and S2 normal heart sound present Bruits: no carotid bruits Peripheral pulses: Peripheral pulses 2+ throughout GI Inspection: Yes normal to inspection Skin Wounds: amputation site Hair: normal Neuro General: oriented to person, oriented to place and oriented to time Cranial nerves: Yes CN's II-XII intact bilaterally and Yes Normal hearing present Cognition (Neuro): normal cognition Motor exam (neuro): 5/5 motor strength present throughout Extrem Other: venous exam: No significant superficial varicosities or spider telangiectasias, minimal edema General: No clubbing, No cyanosis and No edema Psych Appearance: grossly normal Mental Status: mental status grossly normal Speech and movement: Normal speech and movement present Results Reviewed Results Reviewed: CT angiogram dated 11/16/2023 demonstrates stable aortic endograft with no evidence of endoleak. Written report and images were reviewed. Assessment & Plan Assessment & Plan (1) AAA (abdominal aortic aneurysm) without rupture: Comment: 06/02/2017 - endovascular repair with Medtronic endurant 2 S graft Code(s): I71.4 - Abdominal aortic aneurysm, without rupture Category: Medical Qualifiers: Abdominal aorta location: infrarenal aorta Qualified Code(s): I71.43 - Infrarenal abdominal aortic aneurysm, without rupture Plan: In short patient has stable aortic endograft as noted on CT 11/16/2023. We have discussed the pathophysiology of aortic aneurysms and the risk of ruptures. We have discussed rupture risk based on size. In addition we have discussed conservative measures and risk factor modification for prevention of increase in size of the aneurysm. the patient is scheduled for surveillance follow-up in approximately 1 year. Thank you for allowing us to participate in the care of this patient Please note a longitudinal relationship has been created with the patient and we have been following and surveillance this chronic condition. (2) History of right above knee amputation: Code(s): Z89.611 - Acquired absence of right leg above knee Category: Surgical Plan: Patient has a highly functioning right above knee prosthetic. This may need adjustment or change in the near future. We will be able to assist with prosthetic orders and assistance with his prosthetic company. Happy to assist in any way possible. Thank you for allowing us to assist in his care. Orders: Orders CT angio abdomen pelvis 1 Year I71.43 - Infrarenal abdominal aortic aneurysm, without rupture Blood Urea Nitrogen 1 Year I71.43 - Infrarenal abdominal aortic aneurysm, without rupture Creatinine 1 Year I71.43 - Infrarenal abdominal aortic aneurysm, without rupture Coding Level of Care Code Est Pt Level 4 (79069) Complex EM visit Add On G2211 Diagnoses Infrarenal abdominal aortic aneurysm (AAA) without rupture I71.43 Abdominal aorta location: infrarenal aorta History of right above knee amputation Z89.611
== END 2024-01-19 12:12 | disposition home or self-care (01) ==
PROVIDERS: PCP Family Medicine; Visit Provider Surgery Vascular Surgery
DX: I71.43 Infrarenal abdominal aortic aneurysm, without rupture (principal); Z89.611 Acquired absence of right leg above knee
CPT/HCPCS: 99214; G2211

== ENCOUNTER → 2024-01-19 11:41 | Outpatient (BNVA) | payer MEDICARE, SELFPAY | PROVIDERS: PCP Family Medicine; Visit Provider Surgery Vascular Surgery | DX: M79.605 Pain in left leg (principal); Z89.611 Acquired absence of right leg above knee; Z86.79 Personal history of other diseases of the circulatory system | CPT/HCPCS: 99212 ==

== ENCOUNTER 2024-02-02 12:40 | Outpatient (AMB) | payer MEDICARE, SELFPAY ==
--- NOTE | 2024-02-02 13:10 | A.OFFVIS_ITS ---
Vital Signs 02/02/24 13:12 Height 5 ft 10 in Weight 238 lb BMI 34.1 Intake Visit Reasons: OV- Left knee injection-last injection 10/19/23 Intake Note: Jonn an 83 year old male who presents today for a follow up of left knee injection, last injection 10/19/23. Patient reports last injection provided him with relief. He would like to discuss gel injections as cortisone is not provided him with as much relief as before. Allergies No Known Allergies Allergy (Mild, Verified 02/02/24 13:19) NOT APPLICABLE HPI HPI OV- Left knee injection-last injection 10/19/23: Details: 83-year-old male who returns to the office today for a follow-up of left knee pain. He had his last injection on 10/19/23 that provided him relief. He would like to repeat the injection. [facility] Medical History AAA (abdominal aortic aneurysm) without rupture Other and unspecified hyperlipidemia Essential hypertension Peripheral vascular disease Atherosclerotic cardiovascular disease Surgical History History of amputation Family History Father No problems noted. Mother No problems noted. Social History Alcohol intake: current Alcohol intake frequency: holidays/special occasions only Patient Tobacco Use Status: Never used Tobacco Substance Use Type: Marijuana Gender identity: Male Review of Systems Const All systems reviewed & are unremarkable except as noted in HPI and below Physical Exam Vital Signs: BMI result Body Mass Index 34.1 Extrem Other: Left knee skin intact. No erythema or joint effusion. Full ROM with crepitus. Calf supple non tender. Office Procedures AMB Joint Injection/Aspiration Joint Injection/Aspiration Primary Site: left knee Prep: site was prepped using aseptic technique, ethochloride spray was applied and injection warnings given Injected: 80 mg of, DepoMedrol, with 8 mL of, 1% plain lidocaine and in the joint Approach Used: anterolateral Procedure: The patient tolerated the procedure well and there was some relief with the local anesthesia Coding 26381 - Glenohumeral/Tronchanteric Bursa/Intraarticular Procedure code (CPT) selection complete Assessment & Plan Assessment & Plan (1) Primary osteoarthritis of left knee: Code(s): M17.12 - Unilateral primary osteoarthritis, left knee Category: Medical Plan We discussed options today, which include steroid injection. The patient did consent to move forward with the left knee injection, which was tolerated well. I recommended rest, ice, and elevation and OTC anti-inflammatories as needed for discomfort. If symptoms persist or worsens over the next 6-8 weeks, patient will contact the office, otherwise follow-up as needed. Patient Instructions: Scribed for Alexei Barry PA-C, by Julito Velasquez medical biller, on 02/02/2024 at 1:15 PM EST.? I, Alexei Barry PA-C, have personally reviewed and agree with the information entered by the scribe. Coding Level of Care Code Est Pt Level 3 (22679) Complex EM visit Add On G2211 Diagnoses Primary osteoarthritis of left knee M17.12 CPT Codes Coding - Joint 7: 79117 - Glenohumeral/Tronchanteric Bursa/Intraarticular ([id number])
[2024-02-02 13:12] VITALS: BMI 34.1
== END 2024-02-02 13:28 | disposition home or self-care (01) ==
LOC: HO.HOS 12:40
PROVIDERS: PCP Family Medicine; Visit Provider Physician Assistant
DX: M17.12 Unilateral primary osteoarthritis, left knee (principal)
CPT/HCPCS: 20610; 99213

== ENCOUNTER → 2024-02-02 12:40 | Outpatient (BNVA) | payer MEDICARE, SELFPAY | PROVIDERS: PCP Family Medicine; Visit Provider Physician Assistant | DX: M17.12 Unilateral primary osteoarthritis, left knee (principal) | CPT/HCPCS: 20610; 99212; J1010; J2003 ==

== ENCOUNTER 2024-02-28 13:49 | Outpatient (AMB) | payer MEDICARE, SELFPAY ==
[2024-02-28 14:10] VITALS: BP 110/50; PULSE 79; BMI 35.3
--- NOTE | 2024-02-28 14:10 | A.OFFVIS_ITS ---
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: No Accompanied by: Self / Same As Patient Allergies No Known Allergies Allergy (Mild, Verified 02/02/24 13:19) NOT APPLICABLE Medication List - Last Reconciled 02/28/24 by Varun Hurtado MD albuterol sulfate 2.5 mg (3 mL) inhalation Q4H albuterol sulfate 90 mcg/actuation 2 puffs inhalation Q4-6H PRN aspirin 81 mg PO DAILY atorvastatin 80 mg PO BEDTIME cyclobenzaprine 5 mg PO BEDTIME PRN isosorbide mononitrate ER 30 mg PO DAILY losartan 50 mg PO DAILY metoprolol tartrate 50 mg PO BID multivitamin 1 tab PO DAILY omeprazole 20 mg PO DAILY prednisone 50 mg PO DAILY umeclidinium-vilanterol 62.5-25 mcg/actuation (Anoro Ellipta) 1 inh inhalation Q24H walker Wide walker with wheels and seat [Wide Posthetic shoe As directed] HPI Comments Details: Jonn returns for follow-up regarding coronary disease. Since last seen, no new issues. No complaints like angina or shortness of breath or in fact anything cardiac sounding. Seems to be getting along okay. [facility] Medical History AAA (abdominal aortic aneurysm) without rupture Other and unspecified hyperlipidemia Essential hypertension Peripheral vascular disease Atherosclerotic cardiovascular disease Surgical History History of amputation Family History Father No problems noted. Mother No problems noted. Social History Alcohol intake: current Alcohol intake frequency: holidays/special occasions only Patient Tobacco Use Status: Never used Tobacco Substance Use Type: Marijuana Gender identity: Male Review of Systems Const Denies chills, Denies fatigue, Denies fever(s), Denies weight gain and Denies weight loss ENT Denies dizziness Card Denies chest pain, Denies leg edema, Denies lightheadedness, Denies palpitations, Denies dyspnea on exertion, Denies orthopnea and Denies other Resp Denies cough and Denies dyspnea on exertion GI Denies hematochezia and Denies change in stool character Musc Denies abnormal gait, Denies muscle weakness, Denies numbness, Denies radiating pain into limb and Denies tingling Neuro Denies abnormal gait, Denies dizziness, Denies numbness and Denies tingling Endo Denies fatigue and Denies palpitations Physical Exam Vital Signs: Last Vital Signs Pulse 79 02/28/24 14:10 BP 110/50 L 02/28/24 14:10 BMI result Body Mass Index 35.3 Const General: comfortable and no acute distress Orientation/consciousness: patient oriented x3 HEENT Other: Unremarkable Head: Yes normal to inspection Neck Neck: Yes normal visual inspection Chest Chest palpation & inspection: normal inspection of the chest Resp Auscultation: clear to auscultation bilaterally Cardio Palpation: normal PMI Heart sounds: S1 normal heart sound present, S2 normal heart sound present, no gallops, no murmurs and no rubs GI Palpation (GI): Soft to palpation Back/Spine/Pelvis Other: unremarkable Skin General skin exam: no rashes or lesions noted Neuro General: patient oriented x3 Extrem General: Yes normal to inspection Psych Mental Status: mental status grossly normal Assessment & Plan Assessment & Plan (1) Atherosclerotic cardiovascular disease: Code(s): I25.10 - Atherosclerotic heart disease of [place] coronary artery without angina pectoris Category: Medical Plan: Cardiac catheterization from 2017. Had chronic total occlusion of distal circum flex as well as 2nd obtuse marginal with collaterals. Clinically, no angina. Continue low-dose aspirin. Continue statins. (2) Essential hypertension: Code(s): I10 - Essential (primary) hypertension Category: Medical Plan: On metoprolol and losartan. (3) Other and unspecified hyperlipidemia: Code(s): E78.5 - Hyperlipidemia, unspecified Category: Medical Plan: Last available LDL 70 mg/dL. He is on high-dose statins. No changes. (4) AAA (abdominal aortic aneurysm) without rupture: Comment: 06/02/2017 - endovascular repair with Medtronic endurant 2 S graft Code(s): I71.4 - Abdominal aortic aneurysm, without rupture Category: Medical Qualifiers: Abdominal aorta location: infrarenal aorta Qualified Code(s): I71.43 - Infrarenal abdominal aortic aneurysm, without rupture Plan: History of aortic endograft. Follows up with vascular. In the echocardiogram, there is also question of ascending aortic dilatation, but not well visualized. We will obtain chest CT scan. Orders: Orders Basic Metabolic Panel Today I71.21 - Aneurysm of the ascending aorta, without rupture CT angio chest aorta Today I71.21 - Aneurysm of the ascending aorta, without rupture Coding Level of Care Code Est Pt Level 4 (08189) Diagnoses Atherosclerotic cardiovascular disease I25.10 Essential hypertension I10 Other and unspecified hyperlipidemia E78.5 Infrarenal abdominal aortic aneurysm (AAA) without rupture I71.43 Abdominal aorta location: infrarenal aorta
== END 2024-02-28 14:46 | disposition home or self-care (01) ==
PROVIDERS: PCP Family Medicine; Visit Provider Internal Medicine
DX: I25.10 Atherosclerotic heart disease of native coronary artery without angina pectoris (principal); I10 Essential (primary) hypertension; E78.5 Hyperlipidemia, unspecified; I71.43 Infrarenal abdominal aortic aneurysm, without rupture
CPT/HCPCS: 99214

== ENCOUNTER → 2024-02-28 13:49 | Outpatient (BNVA) | payer MEDICARE, SELFPAY | PROVIDERS: PCP Family Medicine; Visit Provider Internal Medicine | DX: I25.10 Atherosclerotic heart disease of native coronary artery without angina pectoris (principal); I10 Essential (primary) hypertension; I71.43 Infrarenal abdominal aortic aneurysm, without rupture; E78.5 Hyperlipidemia, unspecified | CPT/HCPCS: 99212 ==

== ENCOUNTER 2024-03-07 12:07 | Outpatient (AMB) | payer MEDICARE, SELFPAY ==
--- NOTE | 2024-03-07 12:16 | A.OFFVIS_ITS ---
Vital Signs 03/07/24 12:17 Height 5 ft 10 in Weight 246 lb BMI 35.3 Intake Visit Reasons: INJ- LT knee Durolane Intake Note: Jonn an 84 year old male who presents today for a left knee Durolane injection. Allergies No Known Allergies Allergy (Mild, Verified 03/07/24 12:17) NOT APPLICABLE HPI HPI INJ- LT knee Durolane: Details: 84-year-old male who returns to the office today for a left knee Durolane injection. [facility] Medical History AAA (abdominal aortic aneurysm) without rupture Other and unspecified hyperlipidemia Essential hypertension Peripheral vascular disease Atherosclerotic cardiovascular disease Surgical History History of amputation Family History Father No problems noted. Mother No problems noted. Social History Alcohol intake: current Alcohol intake frequency: holidays/special occasions only Patient Tobacco Use Status: Never used Tobacco Substance Use Type: Marijuana Gender identity: Male Review of Systems Const All systems reviewed & are unremarkable except as noted in HPI and below Physical Exam Vital Signs: BMI result Body Mass Index 35.3 Extrem Other: Left knee skin intact. No erythema or joint effusion. Full ROM with crepitus. Calf supple non tender. Office Procedures AMB Joint Injection/Aspiration Joint Injection/Aspiration Details: durolane Primary Site: left knee Prep: site was prepped using aseptic technique, ethochloride spray was applied and injection warnings given Injected: in the joint Procedure: The patient tolerated the procedure well and there was some relief with the local anesthesia Coding 98614 - Glenohumeral/Tronchanteric Bursa/Intraarticular Procedure code (CPT) selection complete Assessment & Plan Assessment & Plan (1) Primary osteoarthritis of left knee: Code(s): M17.12 - Unilateral primary osteoarthritis, left knee Category: Medical Plan We discussed options today, which include Durolane injection. The patient did consent to move forward with the left knee Durolane injection, which was tolerated well. I recommended rest, ice, and elevation and OTC anti- inflammatories as needed for discomfort. If symptoms persist or worsens over the next 6-8 weeks, patient will contact the office, otherwise follow-up as needed. Patient Instructions: Scribed for Alexei Barry PA-C, by Julito Velasquez medical administrative specialist, on 03/07/2024 at 1:15 PM EST.? I, Alexei Barry PA-C, have personally reviewed and agree with the information entered by the scribe. Coding Level of Care Code Procedure Only Diagnoses Primary osteoarthritis of left knee M17.12 CPT Codes Coding - Joint 7: 99565 - Glenohumeral/Tronchanteric Bursa/Intraarticular ([id number])
[2024-03-07 12:17] VITALS: BMI 35.3
== END 2024-03-07 13:40 | disposition home or self-care (01) ==
PROVIDERS: PCP Family Medicine; Visit Provider Physician Assistant
DX: M17.12 Unilateral primary osteoarthritis, left knee (principal)
CPT/HCPCS: 20610

== ENCOUNTER → 2024-03-07 12:07 | Outpatient (BNVA) | payer MEDICARE, SELFPAY | PROVIDERS: PCP Family Medicine; Visit Provider Physician Assistant | DX: M17.12 Unilateral primary osteoarthritis, left knee (principal) | CPT/HCPCS: 20610; J7318 ==

== ENCOUNTER 2024-05-01 10:36 | Outpatient (REF) | payer MEDICARE, SELFPAY ==
--- NOTE | ~2024-05-01 | CT_ITS ---
CLINICAL HISTORY: I71.21 - Aneurysm of the ascending aorta, without rupture CT angiography chest with contrast. 3D Postprocessing. Comparison: CT/SR - CHEST WITHOUT CONTRAST [id number] - 04/23/16 15:34 EST Findings: The heart is normal size. RV/LV ratio is normal. Calcification of the coronary vasculature. Unremarkable thoracic aorta and great vessels. Sinuses of Valsalva are normal in caliber at 40 mm. Ascending thoracic aorta is normal in caliber at 38 mm. No evidence of aortic dissection. No acute pulmonary embolus. The visualized thyroid and mediastinum are unremarkable. No consolidation or effusion. Calcified bilateral pleural plaques. The visualized upper abdomen is unremarkable. No acute fractures. IMPRESSION: 1. No pulmonary emboli. 2. No evidence of thoracic aortic aneurysm. 3. Coronary artery disease. 4. Asbestos related pleural disease. This document has been electronically signed by: Pierce Yanes MD on 05/01/2024 15:54:47
[2024-05-01 11:17] LABS: Alanine Aminotransferase 22 U/L (0-40); Anion Gap 13 (12-20); Aspartate Amino Transferase 34 U/L (5-37); Blood Urea Nitrogen 14 mg/dL (9-16); Carbon Dioxide 25 mmol/L (22-29); Chloride 108 mmol/L (96-108); Estimated Glomerular Filt Rate 59; Potassium 4.5 mmol/L (3.3-5.1); Sodium 141 mmol/L (135-145)
--- OUTSIDE RECORDS SUMMARY | 2024-05-01 11:45 | XMS_ITS | Clinical Summary ---
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 Name Role Phone Unavailable Primary Care Provider Unavailabl e Social History Tobacco Use Types Packs/Day Years Used Date Smoking Tobacco: Never Assessed Sex and Gender Information Value Date Recorded Sex Assigned at Not on file Gender Identity Not on file Sexual Orientation Not on file Plan of Treatment Health Maintenance Due Date Last Done Comments DTaP,Tdap,and Td Vaccines (1 - Tdap) 1959 Zoster Vaccines (1 of 2) 02/14/1992 Pneumococcal Vaccine: 65+ Ye ars (1 of 1 - PCV) 2007 RSV Immunization Patients 60 + Years Old (1 - 1-dose 75+ series) 2017 COVID-19 Vaccine (2023-2 5 season) 2023 Influenza Vaccine (#1) 2023 HIB Vaccines Aged Out No longer eligi ble based on patient's age to complete this topic HPV Vaccines Aged Out No longer eligi ble based on patient's age to complete this topic Hepatitis A Vaccines Aged Out No long er eligible based on patient's age to complete this topic Hepatitis B Vaccines Aged Out No long er eligible based on patient's age to complete this topic IPV Vaccines Aged Out No longer eligi ble based on patient's age to complete this topic MMR Vaccines Aged Out No longer eligi ble based on patient's age to complete this topic Meningococcal ACWY Vaccine Aged Out N o longer eligible based on patient's age to complete this topic RSV Immunization Patients Un edson 20 months Aged Out No longer eligible b ased on patient's age to complete this topic Varicella Vaccines Aged Out No longer eligible based on patient's age to complete this topic
[2024-05-01] MEDS: iohexoL 350 MG/ML 100 ML INFUS..BTL IV (12:02)
== END 2024-05-01 10:37 | disposition home or self-care (01) ==
LOC: HO.CT 10:36
PROVIDERS: Absent Provider Surgery Vascular Surgery; PCP Family Medicine; Referring Provider Family Medicine; Visit Provider Internal Medicine
DX: I71.21 Aneurysm of the ascending aorta, without rupture (principal)
CPT/HCPCS: 36415; 71275; 80051; 82550; 82565; 84450; 84460; 84520; Q9967

== ENCOUNTER → 2024-05-01 10:52 | Outpatient (BNV) | payer MEDICARE, SELFPAY | PROVIDERS: Absent Provider Surgery Vascular Surgery; PCP Family Medicine; Referring Provider Family Medicine; Visit Provider Radiology Diagnostic Radiology | DX: I71.21 Aneurysm of the ascending aorta, without rupture (principal) | CPT/HCPCS: 71275 ==

== ENCOUNTER 2024-05-31 10:54 | Outpatient (REF) | payer MEDICARE, SELFPAY ==
--- NOTE | ~2024-05-31 | XR_ITS ---
EXAMINATION: XR CHEST 2 VIEWS HISTORY: COUGH WHEEZE COMPARISON: Comparison is made with the prior examination dated 05/12/2023. FINDINGS: PA and lateral views of the chest are submitted. Again seen are calcified pleural plaques consistent with prior asbestos exposure. The lungs are clear. There is no pleural effusion, pneumothorax, or pulmonary vascular congestion. The heart is enlarged. The aorta is calcified. There is degenerative disc disease of the spine. Again seen is a marked compression fracture of a lower thoracic vertebral body without change. XR/XR chest 2V IMPRESSION: Calcified pleural plaques, consistent with prior asbestos exposure. No acute cardiopulmonary abnormality. Electronically signed by: Vinny Saxena MD 05/31/2024 11:25 AM EST
--- OUTSIDE RECORDS SUMMARY | 2024-05-31 13:00 | XMS_ITS | Clinical Summary ---
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 Name Role Phone Unavailable Primary Care Provider Unavailabl e Social History Tobacco Use Types Packs/Day Years Used Date Smoking Tobacco: Never Assessed Sex and Gender Information Value Date Recorded Sex Assigned at Not on file Legal Sex Male 9:41 AM EST Gender Identity Not on file Sexual Orientation Not on file Plan of Treatment Health Maintenance Due Date Last Done Comments DTaP,Tdap,and Td Vaccines (1 - Tdap) 1959 Pneumococcal Vaccine: 50+ Ye ars (1 of 1 - PCV) 02/14/1992 Zoster Vaccines (1 of 2) 02/14/1992 RSV Immunization Patients 60 + Years Old (1 - 1-dose 75+ series) 2017 COVID-19 Vaccine ( - 2023-2 5 season) 2023 Influenza Vaccine (#1) 2023 [...] patient's age to complete this topic Meningococcal B Vacine Aged Out No lo nger eligible based on patient's age to complete this topic RSV Immunization Patients Un edson 20 months Aged Out No longer eligible b ased on patient's age to complete this topic Varicella Vaccines Aged Out No longer eligible based on patient's age to complete this topic
== END 2024-05-31 10:55 | disposition home or self-care (01) ==
LOC: HO.XRAY 10:54
PROVIDERS: PCP Family Medicine; Visit Provider Family Medicine
DX: R05.9 Cough, unspecified (principal); R06.2 Wheezing; J06.9 Acute upper respiratory infection, unspecified
CPT/HCPCS: 71046

== ENCOUNTER → 2024-05-31 11:03 | Outpatient (BNV) | payer MEDICARE, SELFPAY | PROVIDERS: PCP Family Medicine; Visit Provider Radiology Diagnostic Radiology | DX: R05.9 Cough, unspecified (principal); R06.2 Wheezing | CPT/HCPCS: 71046 ==

== ENCOUNTER 2024-09-18 13:39 | Outpatient (AMB) | payer MEDICARE, SELFPAY ==
[2024-09-18 13:55] VITALS: BP 122/68; PULSE 94
--- NOTE | 2024-09-18 13:55 | MHC.OFFVIS ---
Vital Signs 09/18/24 13:55 Height 5 ft 10 in BMI Reason not done Patient refused/unable BP 122/68 Blood Pressure Location Lt brachial Position Sitting Pulse 94 Pulse Source Monitor Intake Visit Reasons: 6 mth fu after CTA (HS) r/s 09-05-24 Allergies No Known Allergies Allergy (Mild, Verified 03/07/24 12:17) NOT APPLICABLE Medication List - Last Reconciled 09/18/24 by Moe Mondragon NP albuterol sulfate 2.5 mg (3 mL) inhalation Q4H albuterol sulfate 90 mcg/actuation 2 puffs inhalation Q4-6H PRN aspirin 81 mg PO DAILY atorvastatin 80 mg PO BEDTIME cyclobenzaprine 5 mg PO BEDTIME PRN isosorbide mononitrate ER 30 mg PO DAILY losartan 50 mg PO DAILY metoprolol tartrate 50 mg PO BID multivitamin 1 tab PO DAILY omeprazole 20 mg PO DAILY prednisone 50 mg PO DAILY umeclidinium-vilanterol 62.5-25 mcg/actuation (Anoro Ellipta) 1 inh inhalation Q24H walker Wide walker with wheels and seat [Wide Posthetic shoe As directed] HPI Comments Details: This is an 84-year-old male patient coming in for a follow-up visit. Patient with a history of hypertension, hyperlipidemia, and coronary artery disease. On previous echo, there was question about an ascending aortic dilation which was not well visualized and therefore subsequently underwent a chest CTA. Today, patient reports feeling well overall and denies any exertional chest pain, shortness of breath, palpitations, dizziness, orthopnea, PND, leg edema, presyncope, or syncope. Patient affirms his compliance with all his medications. Patient's here today in a wheelchair, and states that he uses a walker for mobility at home otherwise is mostly sedentary. [facility] Medical History AAA (abdominal aortic aneurysm) without rupture Other and unspecified hyperlipidemia Essential hypertension Peripheral vascular disease Atherosclerotic cardiovascular disease Surgical History History of amputation Family History Father No problems noted. Mother No problems noted. Social History Alcohol intake: current Alcohol intake frequency: holidays/special occasions only Patient Tobacco Use Status: Never used Tobacco Substance Use Type: Marijuana Gender identity: Male Review of Systems Const Denies weakness ENT Denies dizziness Card Denies chest pain, Denies chest pain with activity, Denies syncope, Denies rapid heart rate, Denies pedal edema, Denies edema, Denies leg edema, Denies lightheadedness, Denies palpitations, Denies dyspnea, Denies dyspnea on exertion and Denies orthopnea Resp Denies cough, Denies dyspnea and Denies dyspnea on exertion GI Denies hematochezia and Denies change in stool character Musc Denies abnormal gait, Denies muscle cramps, Denies muscle weakness, Denies numbness, Denies radiating pain into limb and Denies tingling Neuro Denies abnormal gait, Denies dizziness, Denies syncope, Denies numbness, Denies tingling and Denies weakness Endo Denies palpitations Physical Exam Vital Signs: Last Vital Signs Pulse 94 09/18/24 13:55 BP 122/68 09/18/24 13:55 Const General: cooperative, healthy appearing, comfortable and no acute distress Orientation/consciousness: patient oriented x3 HEENT Head: Yes normal to inspection Neck Neck: Yes normal visual inspection, Yes trachea midline and Yes supple Chest Chest palpation & inspection: normal inspection of the chest Resp Effort & Inspection: normal respiratory effort Auscultation: clear to auscultation bilaterally, no crackles, no rales, no rhonchi and no wheezes Cardio Jugular venous distension: no JVD Palpation: normal PMI Rate: regular rate Rhythm: regular rhythm Heart sounds: S1 normal heart sound present, S2 normal heart sound present, no click, no gallops, no murmurs and no rubs Peripheral pulses: Peripheral pulses 2+ throughout GI Inspection: Yes normal to inspection Palpation (GI): Soft to palpation Auscultation: normal bowel sounds Skin General skin exam: no rashes or lesions noted Neuro General: patient oriented x3 Extrem General: Yes normal to inspection, No no pedal edema and No calf tenderness Psych Appearance: grossly normal Mental Status: mental status grossly normal Speech and movement: Normal speech and movement present Office Procedures EKG Details: EKG today shows sinus rhythm with first-degree AV block, rate 94 beats per minute, left axis deviation, LVH with QRS widening and repolarization abnormality, nonspecific ST-T wave abnormalities, prolonged [place] 212 milliseconds, corrected QT - reviewed with Dr. Hurtado. [id number], Complete Assessment & Plan Assessment & Plan (1) Atherosclerotic cardiovascular disease: Code(s): I25.10 - Atherosclerotic heart disease of [place] coronary artery without angina pectoris Category: Medical Plan: 12/01/2016-cardiac catheterization showed a chronic total occlusion of the distal left circumflex and OM2 with collaterals. Currently stable and without any cardiac symptoms. Continue lifelong aspirin therapy and high-dose statin. Continue isosorbide, losartan, and metoprolol therapy. (2) AAA (abdominal aortic aneurysm) without rupture: Comment: 06/02/2017 - endovascular repair with [employer] endurant 2 S graft Code(s): I71.4 - Abdominal aortic aneurysm, without rupture Category: Medical Qualifiers: Abdominal aorta location: infrarenal aorta Qualified Code(s): I71.43 - Infrarenal abdominal aortic aneurysm, without rupture Plan: History of aortic graft, followed by Dr. Finnegan. Continue aspirin therapy. 04/2024-patient underwent a chest CTA to look for aortic aneurysm which was negative. 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 (3) Essential hypertension: Code(s): I10 - Essential (primary) hypertension Category: Medical Plan: Blood pressure within normal limits. Continue current regimen. Advised monitoring blood pressure with a goal less than 130/80. (4) Other and unspecified hyperlipidemia: Code(s): E78.5 - Hyperlipidemia, unspecified Category: Medical Plan: No recent LDL. Continue statin therapy. Ideally LDL goal less than 70. Patient says he has upcoming lab work with his PCP. Advised heart healthy diet, regular exercise as tolerated, medication compliance, and aggressive management of vascular risk factors. Follow up in 1 year, sooner if needed. In the interim, patient will call the office with any concerns or change in symptoms. This note was generated using voice recognition software. While every effort has been made to ensure accuracy and proper yarn mercerizer operator, there may be occasional errors that could affect the content or meaning of the described symptoms. Orders: Orders AMB EKG-In Office Today I25.10 - Atherosclerotic heart disease of [place] coronary artery without angina pectoris Coding Level of Care Code Est Pt Level 4 (85862) Complex EM visit Add On G2211 Diagnoses Atherosclerotic cardiovascular disease I25.10 Infrarenal abdominal aortic aneurysm (AAA) without rupture I71.43 Abdominal aorta location: infrarenal aorta Essential hypertension I10 Other and unspecified hyperlipidemia E78.5 CPT Codes EKG - CPT: [id number], Complete ([id number]) Time Spent (min) 32 Comment Time spent in reviewing the chart, test results, assessment, counseling and documentation.
--- OUTSIDE RECORDS SUMMARY | 2024-09-18 15:35 | XMS_ITS | Clinical Summary ---
Author Organization [facility] ity Address [address] [place] [address] Care Team Providers Care Cinder Crusher Operator Name Role Phone Unavailable Primary Care Provider [...] Vaccines (1 of 2) 02/14/1992 RSV Immunization Adult Patie nts (1 - 1-dose 75+ series) 2017 COVID-19 Vaccine ( - 2023-2 5 season) 2023 Influenza Vaccine (Season Ended) 2024 HIB Vaccines Aged Out No longer eligi [...] age to complete this topic Meningococcal B Vaccine Aged Out No l onger eligible based on patient's age to complete this topic RSV Immunization Patients Un edson 20 months Aged Out No longer eligible b ased on patient's age to complete this topic Varicella Vaccines Aged Out No longer eligible based on patient's age to complete this topic
== END 2024-09-18 14:22 | disposition home or self-care (01) ==
PROVIDERS: PCP Family Medicine
DX: I25.10 Atherosclerotic heart disease of native coronary artery without angina pectoris (principal); I71.43 Infrarenal abdominal aortic aneurysm, without rupture; I10 Essential (primary) hypertension; E78.5 Hyperlipidemia, unspecified
CPT/HCPCS: 93010; 99214; G2211

== ENCOUNTER 2024-09-18 13:39 | Outpatient (REF) | payer MEDICARE, SELFPAY ==
[2024-09-18 14:37] LABS: MANUAL DIFF FLAG NO
[2024-09-18 15:25] LABS: Basophils Absolute Auto 0.1 X10*3/uL (0.0-0.2); Basophils Percent Auto 0.8 % (0-2); Eosinophils Percent Auto 0.4 % (0-4); Hematocrit 37.1 % (42.0-52.0); Hemoglobin 12.4 g/dl (14.0-18.0); Imm Gran Abs Auto 0.05 X10*3/uL (0.00-0.03); Imm Gran Pct Auto 0.5 % (0.0-0.4); Lymphocytes Absolute Auto 1.8 X10*3/uL (1.2-4.9); Lymphocytes Percent Auto 19.8 % (20-40); Mean Corpuscular HGB Conc 33.4 g/dl (31.0-36.0); Mean Corpuscular Hemoglobin 31.2 pg (27.0-33.0); Mean Corpuscular Volume 93.5 fL (80.0-98.0); Monocytes Absolute Auto 0.7 X10*3/uL (0.1-1.2); Monocytes Percent Auto 7.8 % (2-11); Neutrophils Absolute Auto 6.4 x10*3/uL (2.0-8.3); Neutrophils Percent Auto 70.7 % (45-73); Platelet Count 110 X10*3/uL (160-400); Red Blood Count 3.97 X10*6/uL (4.60-5.80); Red Cell Distribution Width 13.2 % (11.0-16.0); White Blood Count 9.1 X10*3/uL (4.8-10.8)
[2024-09-18 16:04] LABS: Alanine Aminotransferase 26 U/L (0-40); Anion Gap 11 (12-20); Aspartate Amino Transferase 37 U/L (5-37); Blood Urea Nitrogen 18 mg/dL (9-16); Carbon Dioxide 26 mmol/L (22-29); Chloride 106 mmol/L (96-108); Estimated Glomerular Filt Rate 48; Potassium 4.4 mmol/L (3.3-5.1); Sodium 139 mmol/L (135-145)
== END 2024-09-18 13:40 | disposition home or self-care (01) ==
LOC: HO.LAB 13:39
PROVIDERS: Absent Provider Family Medicine; PCP Family Medicine
DX: I71.43 Infrarenal abdominal aortic aneurysm, without rupture (principal); I25.10 Atherosclerotic heart disease of native coronary artery without angina pectoris; I44.0 Atrioventricular block, first degree; I10 Essential (primary) hypertension; E78.5 Hyperlipidemia, unspecified
CPT/HCPCS: 36415; 80051; 82550; 82565; 84450; 84460; 84520; 85025; 93005; 99212

== ENCOUNTER 2025-01-01 14:18 | Outpatient (REF) | payer MEDICARE, SELFPAY ==
--- NOTE | ~2025-01-01 | CT_ITS ---
EXAMINATION: CT ABDOMEN PELVIS ANGIOGRAPHY WITH IV CONTRAST HISTORY: I71.43 - Infrarenal abdominal aortic aneurysm, without rupture COMPARISON: There are no prior studies for available comparison. TECHNIQUE: CT angiogram of the abdomen and pelvis was performed following administration of 80 mL Omnipaque 350 using standard departmental protocol. Coronal and sagittal reformatted images were generated and reviewed. This CT exam was performed with one or more of the following dose reduction techniques: automated exposure control, adjustment of the mA and/or kV according to patient size, use of iterative reconstruction technique. DLP: 348 mGy-cm FINDINGS: LOWER CHEST: There are calcified pleural plaques at the lung bases, consistent with prior specialists exposure. There is scarring in the left lower lobe. There is no pleural effusion. CARDIOVASCULATURE: The heart is enlarged. There is no pericardial effusion. LIVER: The liver is normal in size and contour. No liver mass is identified. The hepatic and portal veins are patent. GALLBLADDER / BILE DUCTS: The gallbladder is unremarkable. There is no intra or extrahepatic biliary ductal dilatation. SPLEEN: The spleen is normal in size. No focal splenic lesion is identified. PANCREAS: The pancreas is unremarkable in appearance. ADRENAL GLANDS: Within normal limits. KIDNEYS/RETROPERITONEUM: No renal calculi are identified. There is no hydronephrosis. There is a 1.7 cm cyst in the interpolar region of the right kidney. LYMPH NODES: No abdominal or pelvic lymphadenopathy. VASCULATURE: An aortobiiliac stent graft is again noted which ends at the level of the renal arteries. The graft is patent. The [place] abdominal aorta measures up to 3.2 cm in diameter. Again seen is a small amount of mural thrombus in the pok[place] abdominal aorta and within the right common iliac graft. There is no evidence of endoleak on this single phase examination. MESENTERY/PERITONEUM: No free fluid. No masses. There is no free intraperitoneal gas. STOMACH: There is a large amount of debris in the stomach. SMALL BOWEL: The small bowel is normal in caliber. COLON: There is a large amount of stool throughout the colon. APPENDIX: Normal. URINARY BLADDER/PELVIC ORGANS: The urinary bladder is collapsed, limiting evaluation. The prostate is enlarged. BONES / SOFT TISSUES: No suspicious bony or soft tissue abnormalities. CT/CT angio abdomen pelvis IMPRESSION: Patent aortobiiliac stent graft without change. No evidence of endoleak on this single phase examination. Electronically signed by: Vinny Saxena MD 01/02/2025 07:32 AM EDT
[2025-01-01 15:02] LABS: Blood Urea Nitrogen 17 mg/dL (9-16); Estimated Glomerular Filt Rate 49
--- OUTSIDE RECORDS SUMMARY | 2025-01-01 15:43 | XMS_ITS | Clinical Summary ---
Author Organization [facility] [address] ity Address [address] [place] [address] Care Team Providers Care Semiautomatic Stitcher Operator Name Role Phone Unavailable Primary Care [...] nts (1 - 1-dose 75+ series) 2017 Depression Screening 04/04/2024 COVID-19 Vaccine (1 - 2023-2 5 season) 2024 Influenza Vaccine (#1) 2024 HIB Vaccines Aged Out No longer [...]
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
[2025-01-01] MEDS: iohexoL 350 MG/ML 100 ML INFUS..BTL IV (17:05)
[2025-01-03 09:28] LABS: Creatinine POC 1.2 mg/dL (0.5-1.4); GFR POC > 60
== END 2025-01-01 14:19 | disposition home or self-care (01) ==
LOC: HO.CT 14:18
PROVIDERS: PCP Family Medicine; Visit Provider Surgery Vascular Surgery
DX: I71.43 Infrarenal abdominal aortic aneurysm, without rupture (principal)
CPT/HCPCS: 36415; 74174; 82565; 84520; Q9967

== ENCOUNTER → 2025-01-01 14:20 | Outpatient (BNV) | payer MEDICARE, SELFPAY | PROVIDERS: PCP Family Medicine; Visit Provider Radiology Diagnostic Radiology | DX: I71.43 Infrarenal abdominal aortic aneurysm, without rupture (principal); Z95.828 Presence of other vascular implants and grafts | CPT/HCPCS: 74174 ==

== ENCOUNTER 2025-02-20 10:44 | Outpatient (AMB) | payer MEDICARE, SELFPAY ==
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
[2025-02-20 11:22] VITALS: BP 128/78; PULSE 78; RESP 20; TEMP 36.5; O2SAT 97; BMI 32.3
--- OUTSIDE RECORDS SUMMARY | 2025-02-20 21:06 | XMS_ITS | Clinical Summary ---
Author Organization [facility] ity Address [address] [place] [address] Care Team Providers Care Satellite Specialist Name Role Phone Unavailable Primary Care Provider [...] Depression Screening 04/04/2024 COVID-19 Vaccine (1 - 2024-2 6 season) 2024 Influenza Vaccine (#1) 2024 HIB [...]
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
== END 2025-02-20 11:45 | disposition home or self-care (01) ==
PROVIDERS: PCP Student in an Organized Health Care Education/Training Program; Visit Provider Student in an Organized Health Care Education/Training Program
DX: Z00.00 Encounter for general adult medical examination without abnormal findings (principal); T81.30XA Disruption of wound, unspecified, initial encounter; Z89.611 Acquired absence of right leg above knee; I10 Essential (primary) hypertension; I25.10 Atherosclerotic heart disease of native coronary artery without angina pectoris; I71.43 Infrarenal abdominal aortic aneurysm, without rupture; J45.20 Mild intermittent asthma, uncomplicated

== ENCOUNTER → 2025-02-20 10:44 | Outpatient (BNVA) | payer MEDICARE, SELFPAY | PROVIDERS: PCP Family Medicine; Visit Provider Student in an Organized Health Care Education/Training Program | DX: Z00.00 Encounter for general adult medical examination without abnormal findings (principal); T81.30XA Disruption of wound, unspecified, initial encounter; J45.20 Mild intermittent asthma, uncomplicated; I71.43 Infrarenal abdominal aortic aneurysm, without rupture; Z95.828 Presence of other vascular implants and grafts; I25.10 Atherosclerotic heart disease of native coronary artery without angina pectoris; I10 Essential (primary) hypertension; Z89.611 Acquired absence of right leg above knee; Z97.13 Presence of artificial right leg (complete) (partial); Z13.1 Encounter for screening for diabetes mellitus; Z13.9 Encounter for screening, unspecified; Z13.30 Encounter for screening examination for mental health and behavioral disorders, unspecified; Z87.891 Personal history of nicotine dependence | CPT/HCPCS: 36415; 80053; 80061; 82043; 82306; 82570; 83036; 84443; 85025; 96127; 99202; 99387 ==

== ENCOUNTER 2025-02-20 11:50 | Outpatient (REF) | payer MEDICARE, SELFPAY ==
[2025-02-20 13:08] LABS: MANUAL DIFF FLAG NO
[2025-02-20 13:31] LABS: Hematocrit 38.5 % (42.0-52.0); Hemoglobin 12.4 g/dl (14.0-18.0); Imm Gran Abs Auto 0.09 X10*3/uL (0.00-0.03); Imm Gran Pct Auto 1.0 % (0.0-0.4); Lymphocytes Absolute Auto 2.3 X10*3/uL (1.2-4.9); Mean Corpuscular HGB Conc 32.2 g/dl (31.0-36.0); Mean Corpuscular Hemoglobin 30.5 pg (27.0-33.0); Mean Corpuscular Volume 94.6 fL (80.0-98.0); NRBC Abs Auto 0.000 X10*3/uL (0.0-0.012); NRBC Pct Auto 0.0 /100WBC (0.0-0.2); Platelet Count 116 X10*3/uL (160-400); Red Blood Count 4.07 X10*6/uL (4.60-5.80); White Blood Count 9.4 X10*3/uL (4.8-10.8)
[2025-02-20 14:06] LABS: Total Hemoglobin (HGBA1C) 2215.2276 umol/L
[2025-02-20 14:20] LABS: Microalbum/Creatinine Ratio Ur 5.1 ug/mg cr (<30)
[2025-02-20 15:13] LABS: Alanine Aminotransferase 31 U/L (0-40); Albumin Level 3.9 g/dL (3.5-5.0); Alkaline Phosphatase 78 U/L (39-117); Anion Gap 9 (12-20); Aspartate Amino Transferase 41 U/L (5-37); Blood Urea Nitrogen 13 mg/dL (9-16); Calcium 8.7 mg/dL (8.4-10.2); Carbon Dioxide 27 mmol/L (22-29); Chloride 107 mmol/L (96-108); Cholesterol 103 mg/dL (<200); Estimated Glomerular Filt Rate > 60; HDL Cholesterol 28 mg/dL (>40); Potassium 4.1 mmol/L (3.3-5.1); Sodium 139 mmol/L (135-145); Total Protein 6.5 g/dL (6.5-8.0); Triglycerides 89 mg/dL (<150)
== END 2025-02-20 11:51 | disposition home or self-care (01) ==
LOC: HO.10HDL 11:50
PROVIDERS: Visit Provider Student in an Organized Health Care Education/Training Program
DX: Z13.89 Encounter for screening for other disorder (principal)
CPT/HCPCS: 36415; 80053; 80061; 82043; 82306; 82570; 83036; 84443; 85025